=== PATIENT | male | born 1950 | race Caucasian/White ===

== ENCOUNTER 2025-09-01 11:08 | Outpatient (AMB) | payer MEDICARE, SELFPAY ==
--- OUTSIDE RECORDS SUMMARY | 2025-08-28 14:30 | XMS_ITS | Encounter Summary ---
Author Organization [facility] Address [address] [facility] [address] [place] [phone] Phone Care Team Providers Care Chief Operating Engineer Name Role Phone Marianne Mondragon Primary Care Provider Reason for Referral * MRI/CAT Scan - Authorized Specialty Diagnoses / Procedures Referred By Contac t Referred To Contact Radiology Diagnoses Dizziness and giddiness Cervical myofascial pain syndrome Brisk deep tendon reflexes Procedures MRI Cervical Spine CHG MRI, CERV SPINE CHG MRI, CERV SPINE CONTRAST CHG MRI, CERV SPINE COMBO Byron Diaz MD [address] [place] [address], [address] [place] [address] Phone: tel: fax: [email or web address] Referral ID Status Reason Start Date Expiration Date V isits Requested Visits Authorized [id number] Authorized 08/29/2025 11/26/2025 1 1 * MRI/CAT Scan - Authorized Specialty Diagnoses / Procedures Referred By Contac t Referred To Contact Radiology Diagnoses Dizziness and giddiness Tremors of nervous system Brisk deep tendon reflexes Procedures MRI Brain CHG MRI BRAIN Byron Diaz MD [address] [place] [address], [address] [place] [address] Phone: tel: fax: [email or web address] Referral ID Status Reason Start Date Expiration Date V isits Requested Visits Authorized [id number] Authorized 08/29/2025 11/26/2025 1 1 Reason for Visit * Reason Comments Follow Up Visit Encounter Details Date Type Department Care Team (Eligio st Contact Info) Description 08/28/2025 2:30 PM EDT Office Visit [facility] Neurology [address] [place] [address] Byron Diaz MD [address] [facility], 2nd [place] [address] [email or web address] Dizziness and giddiness (Primary Dx); Cervical myofascial pain syndrome; Tremors of nervous system; 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 No 06/06/2024 Education Answer Date Recorded Are you interested in more education? Not on clay e 10/09/2023 Are you concerned about learning? Not on file 10/09/2023 No 10/09/2023 No 10/09/2023 Food Answer Date Recorded Within the past 6 months we worried whether our food would run out before we got money to buy more. Never True 06/06/2024 Within the past 6 months the food we bought just didn't last and we didn't have enough money to get more. Never True Residential Stability Answer Date Recor ded What is your housing situation today? I have frantz cerda 06/06/2024 How many times have you moved in the past 12 mon ths? One time 06/06/2024 Paying for Meds Answer Date Recorded Do you have trouble paying for medicines? No 06/06/2024 Paying Utility Bills Answer Date Record ed Do you have trouble paying your heating or elect ricity bill? No 06/06/2024 Transportation Answer Date Recorded Has the lack of transportati on kept you from medical appointments or from getting medications? No 06/06/2024 Digital Access Answer Date Recorded No 06/06/2024 Yes 06/06/2024 Do you have reliable internet access at home? Ye s 06/06/2024 Do you have a device (e.g., phone, tablet, computer) with a working camera? Yes 06/06/2024 Intimate Partner Violence Answer Date R ecorded Are you denied basic needs s uch as food, clothing, or medical care? No 10/07/2024 In the past 12 months have y ou been in a relationship with a person who hurts, threatens, or tries to control you? No 10/07/2024 Are you denied basic needs s uch as food, clothing, or medical care? No 10/07/2024 In the past 12 months have y ou been in a relationship with a person who hurts, threatens, or tries to control you? No 10/07/2024 Sex and Gender Information Value Date Recorded Sex Assigned at Not on file Legal Sex Male 1:40 PM EST Gender Identity Not on file Sexual Orientation Not on file documented as of this encounter Last Filed Vital Signs Vital Sign Reading Time Taken Comments Blood Pressure 118/59 08/28/2025 2:32 PM EDT Pulse 64 08/28/2025 2:32 PM EDT Temperature - - Respiratory Rate - - Oxygen Saturation 97% 08/28/2025 2:32 PM EDT Inhaled Oxygen Concentration - - Weight - - Height - - Body Mass Index - - documented in this encounter Progress Notes * Byron Diaz MD - 08/28/2025 2:30 PM EDT Date of Visit: 08/28/2025 Reason for Visit (Chief Complaint): Memory changes; dizziness HPI: Mr. Fermin is a 74yo man with HTN, HLD, DM, CAD, ROMAN, depression/anxiety who returns for evaluation of short term memory loss that has been progressively worsening since the late . Prior evaluation at the [facility] in [id number] was notable for concern of pseudodementia although the examples provided today such as getting lost on a cruise ship, stopping driving due to concerns about poor focus on the road, etc. are more concerning for an underlying neurodegenerative process. -[facility] mentioned some slightly progressive hydrocephalus over the course of 5961-1636;I speculated about NPH given their report of imbalance and urinary incontinence, but updated Brain MRI 06/2024 here at [facility] showed no evidence to suggest NPH. NeuroPsych testing w Dr. Carlson 06/2024 showed mild Alzheimer's in addition to ongoing depression, which was not felt to be the cause of his cognitive issues. We started donepezil. At our 08/2024 appt, he was doing ok, memory was stable and tolerating donepezil well. Some days more lucid and other days more frustrating. Intention tremors persisted but weren't bothersome to him.He was in the ED 10/07/24 with dizziness and hyperkalemia, tx'd with IV fluids and Lokelma, and discharged home. Surveillance MANAGER OF QUALITY testing in 01/2025 was mostly stable mild AD with depression. He saw Sleep Med 01/2025 with plans for home sleep study. Dr. Rand also made some helpful recommendations regarding various sleep aids and how they may impact different stages of sleep (Ie. Mirtazapine may increase slow-wave sleep while donepezil may reduce slow-wave sleep and cause insomnia. Trazodone or doxepin might help to treat depression and also increase slow-wave sleep. Pregabalin and ramelteon might also help but would be less effective for depression). At our 02/2025 appt, things were status quo, some days more lucid than others, and overall he was more sedentary and depressed. We initiated memantine/namenda XR 7mg. After some initial GI side effects, he acclimated to it and we increased his dose to 14mg in 03/2025. Rebeka noted some fogginess/wooziness which I thought might be more related to BP meds. PCP did not find any particular cause at their 05/05/25 appt, plan to liaison with Cardiology re: HTN meds. PCP placed a referral to Geriatric Medicine as well, pending for 11/2025. At our 05/2025 televisit, we discussed his worsening dizziness and woozy foggy sensation forcing himto spend more time in bed. He reduced/stopped amlodipine/propranolol/ramipril without benefit. I did not think this was progression of his AD in light of stable memory and MANAGER OF QUALITY testing. I was skeptical that Namenda was causing his fogginess/dizziness, but we decided to taper him off it just in case. Tick panel was neg. Cardiac monitoring did not correlate with his dizziness. Vestibular PT was not helpful and concluded it wasn't vertigo. Ke and Rebeka return this afternoon. They cancelled their [place] cruise on account of the ongoingdizziness. I'm woozy most of the time and dizzy every now and then. He has trouble describing thedifference, like a blanket over his head. It is not room spinning. No LOC. No differences since he stopped memantine in 05/2025. He's spending more time in bed, unsteady just to get out of bed to get food. No changes since reducing 2 BP meds. He's having a lot of neck pain, saw. Dr. Sierra of Spine Medicine, who referred them to [facility] for injections, pending for later this week. RAS consult pending for next week. Geriatrics pending for 09/2025. Memory seems stable, no better orworse on/off the memantine. Some increasing tremors of late. He's walking more slowly and hunched due to his neck pain. Initial HPI 06/16/24: Mr. Fermin is a 73yo man with HTN, HLD, DM, CAD, ROMAN, depression/anxiety who is referred for evaluation of memory changes. He has been followed by various neurologists in the [facility] system for forgetfulness of several years' duration. At his most recent visit in 04/2022, they reviewed several pages of family notes detailing minor memory lapses associated with agitation or depression. They mention the prior dementia labs were unremarkable. They mention an occasional L>R positional hand tremor that might affect brushing teeth or eating soup, but otherwise was not bothersome to the patient. Noparkinsonian signs like rigidity or gait instability. They concluded that his memory changes were related to pseudodementia from depression/stress versus mild MCI; he scored 35-37/38 on STMS testing. They felt that his cognitive abilities seemed improved or stable over time, and they did not thinkthat he needed any dementia medications. His tremor was felt to be most consistent with enhanced physiologic versus essential tremor, and the the patient was not interested in treatment at that time and effort to avoid further polypharmacy. I was in touch with the patient's local PCP earlier this summer who mention some ongoing concerns about progressive memory loss. I recommended an updated brain MRI and neuropsych testing, both of which have been ordered and are pending as of our 06/16/2024 ruel springer. He presents today accompanied by his Rebeka. I have short term memory problems and I forget everything. 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 It's been going on for years, to the late . When I ask for examples, he mentions things like forgetting when his tells him to turn off the coffee pot before going bed. He finds this depressing bc he felt that his memory was always great. He is somewhat vague. She has several pages of notes that she has logged, highlights include: he didn't recall their new car was a hybrid or had 2 vs 3 rows of seats; forgot whether or not he had lunch; forgot that they just ate an energy bar an hour ago; forgot that he had a telemed appt despite their discussing it several times; concentration issues when more than 1 thing is going on; he didn't realize it was a weekend/summer and why family wasn't in school; forgot about blueberry picking outing with friends that they had recently discussed; he left a urine specimen on their counter when she went out (he was supposed to submit it the next morning). They went on a cruise recently, and he was pacing the halls unable to find their cabin when she left him alone for a few minutes. He tells her things like I feel disconnected. They were unable to get neuropsych testing due to logistical issues with staff turnover at . Alvino cut down and ultimately stopped driving in 2022 due to poor focus on the road and neck/pain mobility. Alvino listens to all of these details rather passively and occasionally agrees/nods with her history. When I ask about mental health, he says I feel down a lot. He denies any head injuries as an adult. No hx of meningitis/encephalitis. Sleep is fine and he was retested which showed no further evidence of ROMAN since losing ~45 lbs via diet/exercise. Balance is so-so, he trips and falls sometimes, catches his toes on a step and goes down. He might shuffle at times. Denies any dizziness or weakness or numbness. He has prism lenses to correct his lifelong diplopia from amblyopia. Some mild tinnitus but denies hearing loss. He sees a Urologist for kidney stones, but he has had some recent urgeincontinence where he doesn't make it to the bathroom in time (they've been increasing their water intake due to hot summer and hx of kidney stones - I'm constantly peeing ). He has some essential tremors that are getting a bit worse, and he finds it frustrating when thingsfall off his spoon or fork. He uses propranolol 20mg BID. They use [email or web address] med management system to track/manage his meds. --------- NeuroPsych testing - 01/[address] Carlson - Results of the 6-month reevaluation are generally unchanged, with some variability in test course, with both gains and losses. I continue to classify this as dementia of mild severity with some background depression. On this evaluation there is no change in his intelligence, with his overall score still average butbelow his background expectation. He has good attention pain... Language skills remain intact. He has some problems in executive functions, with some decline in his verbal and nonverbal abstract thinking. His memory remains as the greatest area of concern. He did not perform his well on the delayedlist recall task but remembered more than 2 stories after delay. His immediate visual recall is slightly better, but he continues to be unable to remember any of the design information after a delay.He is endorsing fewer depressive symptoms but remains underactive and less able to enjoy activities Dr. Hernandez recommended continuing donepezil and adding memantine ER with up titration. Continue sertraline 150 mg at bedtime especially since it is now augmented by mirtazapine. Follow-up regarding sleep medicine consultation. Encouraged regular physical activity. Repeat neuropsych testing in 1 years time. NeuroPsych testing - 06/[address] Carlson - Patient is suffering from a dementia of mild severity with depression. The pattern of test scores is consistent with Alzheimer's disease, but his medical history suggest a vascular component is present.??? His depression remains despite current treatment but is unlikely to be the cause of his cognitive problems. He demonstrates severe impairment in his delayed recall that at that his learning curve was limitedand delayed recall fell well below expectations. His immediate memory for stories was average quantitatively but declined over 20 minutes to a single piece of information from one of the 2 stories. His visual memory was greatly impaired. In addition to the memory problems, he was confused in the computerized continuous performance test, with reliable responding to only the auditory targets and scoring at a severely impaired level even there... His depression appears to be of longstanding, and Dr. Hernandez did not know enough about his history of response to his current medications or any predecessors to offer much advice in that area. Dr. Hernandez recommended blood work which we have already pursued. Although prior sleep study was negativefor sleep apnea, Dr. Hernandez expressed concern for the absence of stage III sleep. He recommended sleep medicine consultation. He recommended taking sertraline at bedtime to avoid excessive sedation duringthe day. Dr. Hernandez agreed with initiation of a memory medication like donepezil, dosed in the morning so as to avoid excessive dreaming. Encourage regular exercise. Repeat MANAGER OF QUALITY testing in 6 months time. Labs - B12 505, MMA and homocysteine wnl, TSH 2.28, RPR neg, A1C 6.7. LDL 46. Vit D 43 wnl. Brain MRI - 07/04/24 - images reviewed - Minimal WM disease and no significant ventricular enlargement. No evidence of intracranial mass, hemorrhage, acute infarction, or hydrocephalus. Head CT - 08/24/23 - [facility] report - No CT evidence of an acute intracranial abnormality. Mild parenchymal atrophy with nonspecific cerebral white matter changes that may be seen with chronic small vessel ischemia in a patient this age. Mild prominence of the bilateral lateral ventricles, slightly increased compared to 09/13/2022; this is favored to be commensurate to the degree of volume loss.However, given the provided clinical indication, early/developing normal pressure hydrocephalus mayappear similarly. Brain MRI - 09/13/2020 - [facility] report - 1. Mild atrophy with slight parietal prominence, otherwise normal MRI brain with without contrast. 2. Given these findings and patient's reported symptoms, consideration of further neuropsychological testing may be appropriate. PMHx: Past Medical History: Diagnosis Date Aortic stenosis 04/26/2024 Mild Coronary artery disease Dementia Hyperlipidemia Hypertensive disorder Mitral regurgitation 04/26/2024 Mild ROMAN (obstructive sleep apnea) 02/19/2022 Resolved. PSG, with AHI 0.3. HST, 03/07/2025 also normal, AHI 2.1. (Moderate ROMAN originally diagnosed in 2008, but was never treated with CPAP, only an EPAP nasal device.) Overweight (BMI 25.0-29.9) Tremor Meds: Current Outpatient Medications Medication Sig Dispense Refill Last Dispense acetaminophen (TYLENOL EXTRA STRENGTH) 500 MG tablet Take 1,500 mg by mouth daily. 1000mg in the morning, and 500mg in the evening. Unknown (patient-reported) aspirin 81 mg chewable tablet Take 81 mg by mouth daily. Unknown (patient-reported) atorvastatin (LIPITOR) 80 MG tablet Take 1 tablet (80 mg total) by mouth daily. 90 tablet 3 Unknown(outside pharmacy) clotrimazole (LOTRIMIN) 1 % cream Apply topically 2 (two) times a day. 30 g 0 Unknown (outside pharmacy) donepeziL (ARICEPT) 10 MG tablet TAKE 1 TABLET (10 MG TOTAL) BY MOUTH DAILY WITH BREAKFAST. 90 tablet 3 Unknown (outside pharmacy) FIBER, PSYLLIUM HUSK, ORAL daily. Unknown (patient-reported) JANUVIA 100 mg tablet Take 1 tablet (100 mg total) by mouth daily. 90 tablet 3 Unknown (outside pharmacy) Medication-Free Text Vitamin D3 100IU 1 tab daily Unknown (patient-reported) metFORMIN (GLUCOPHAGE) 1000 MG tablet TAKE 1 TABLET BY MOUTH TWICE A DAY 180 tablet 3 Unknown (outside pharmacy) mirtazapine (REMERON) 15 MG tablet take 1 tablet by mouth everyday at bedtime Unknown (patient-reported) multivit-min/folic/vit K/lycop (ONE-A-DAY MEN'S MULTIVITAMIN ORAL) daily. Unknown (patient-reported) omega-3 fatty acids-fish oil 340-1,000 mg Cap Take by mouth daily. Unknown (patient-reported) propranoloL (INDERAL) 20 MG immediate release tablet TAKE 1 TABLET BY MOUTH TWICE A DAY 180 tablet 3 Unknown (outside pharmacy) ramipriL (ALTACE) 5 MG capsule Take 1 capsule (5 mg total) by mouth 2 (two) times a day. 30 [id number] Unknown (outside pharmacy) sertraline (ZOLOFT) 100 MG tablet Take 1.5 tablets (150 mg total) by mouth daily. 135 tablet 3 Unknown (outside pharmacy) tamsulosin (FLOMAX) 0.4 mg Cap 0.4 mg daily. Unknown (patient-reported) Current Facility-Administered Medications Medication Dose Route Frequency Provider Last Rate Last Admin lidocaine (XYLOCAINE) 1% injection 2 mL 2 mL See Administration Instructions See Admin InstructionsEva Mei MD Allergies: No Known Allergies FamHx: Mother w memory issues in her 90s. 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 The patient does not smoke, abuse ETOH or use recreational drugs. ROS: Pertinent positive ROS are listed in the HPI. All others are negative. Physical Exam: Vitals: Vitals: 08/28/25 1432 BP: 118/59 Pulse: 64 SpO2: 97% Gen: AAOx3, calm, NAD but mood appears dysthymic Neuro: MS: Speech is clear/fluent, no dysarthria. Vague and defers often to his . Knows month and year. Doesn't know exact floor location. Doesn't want to discuss President's name. MMSE - 06/16/24 - (incorrect date, day of the week; location; took paper w wrong hand; 1/3 recall, 3/3 w cues; preserved pentagon drawing). CN: no facial droop nor asymmetry, hearing intact to conversation Motor: Subtle resting tremors. +Enhanced physiological tremor w arms in various positions. No bradykinesia. No cogwheeling. Able to arise from a chair w/o difficulty. Sens: Intact to LT, no extinction to DSS Reflexes: 2+ b/l Bi/BR, 1-2+ patellars, mute achilles, down going plantars, faint crabtree's in LUE Coord: FTN w end point tremor, no dysmetria Gait: Nml base, stooped posture slightly shuffling stride, minimal arm swing Assessment and Plan: Mr. Fermin is a 74yo man with HTN, HLD, DM, CAD, ROMAN, depression/anxiety who returns for evaluation of short term memory loss that has been progressively worsening since the late . Prior evaluation at the [facility] in [id number] was notable for concern of pseudodementia although the examples provided today such as getting lost on a cruise ship, stopping driving due to concerns about poor focus on the road, etc. are more concerning for an underlying neurodegenerative process. [facility] imaging mentioned some slightly progressive hydrocephalus over the course of 8776-1120; I speculated about NPH given their report of imbalance and urinary incontinence, but updated Brain MRI 06/2024 here at [facility] showed no evidence to suggest NPH. NeuroPsych testing w Dr. Carlson showed mild Alzheimer's in addition to ongoing depression, which was not felt to be the cause of his cognitive issues. We started donepezil which he has been tolerating well. Surveillance neuropsych testing in 01/2025 showed stable mild ED with depression. He saw sleep medicine. We added memantine/namenda in 02/2025 which they think might be contributing to a sensation of fogginess/wooziness. No ataxia or focal deficits when he saw his PCP 05/05/25. He reports ongoing dizziness/wooziness since ~ April 2025. It persists despite stopping memantine and down-titrating his cardiac meds. Cardiac work-up was unrevealing. Vestibular PT did not think it was an inner ear issue. He has ongoing neck pain and has [facility] eval pending. Also with Neuro-ENT and Geriatric Medicine pending. -Check Brain MRI and C-Spine MRI to r/o structural causes of dizziness (I doubt posterior circulation stroke; r/o cervical myelopathy given brisk reflexes and neck pain) -He has some possible emerging parkinsonian signs - resting tremor, stooped posture w shuffling gait - consider NISHANT scan vs. Empiric trial of sinemet in the future if Brain/C-Spine MRI unrevealing and if work-up with Pain Clinic, ENT, and Geriatrics are unrevealing. -We tapered off memantine in summer 2024 without any change in cognition nor dizziness. -Agree with Pain Management, [facility] Neuro-ENT, and Geriatric Medicine evaluations -Sleep Med consult - ? Loss of stage 3 sleep seen on prior studies in [place]. ? Role for adjusting his antidepressants or other sleep aids. -Continue donepezil 10mg daily. -I referred them to the book by Dr. Mckeon and Brendon Carlson entitled Dementia Prevention. I encouraged them to stay physically active and socially/cognitively stimulated. -f/u 3 months I spent 40 minutes (both FTF and nonFTF time) preparing to see the patient, reviewing prior notes and relevant data, performing a medically necessary evaluation, counseling the patient, and finalizing the visit. documented in this encounter Plan of Treatment Upcoming Encounters Date Type Department Care Team (Late st Contact Info) Description 08/28/2025 Procedure Pass [address] [address] 08/28/2025 Procedure Pass [address] [address] 09/05/2025 9:15 AM EDT Office Visit [facility] Vestibular Lab [place] [address] [place] [address] Debbie Waller MD, PhD [address] [place] [phone] [email or web address] 09/20/2025 3:30 PM EST Office Visit [facility] Geriatrics [address] [place] [id number] Mateo Lozano DO [address] [place] [phone] [email or web address] 09/26/2025 1:40 PM EST Office Visit [facility] [address] [place] [address] Ivory Camejo PA-C [address] [place] [address] [facility] [place] [address] 10/01/2025 7:05 AM EST Appointment [address] [address] Byron Diaz MD [address] [place] [address], 2[address] [place] [address] 10/04/2025 10:35 AM EST Appointment [facility], [facility] [address] [place] [address] Byron Diaz MD [address] [place] [address], [address]nd [place] [address] 10/16/2025 9:30 AM EST Office Visit [address] [place] [address] Marianne Mondragon [address] [place] [address], [address] [place] [address] [email or web address] 10/24/2025 10:30 AM EST Office Visit [facility] [address] [place] [address] [address]rd Floor, [address] [place] [address] Debra Hernandez DNP [address] [facility], [address] [place] [address] 11/28/2025 10:00 AM EST Office Visit [facility] [address] [place] [address] Sidney Rodriguez PA-C [address] [place] [address], 3[address] [place] [address] 11/22/2026 10:00 AM EST Office Visit [address] [place] [address] Marianne Mondragon [address] [place] [address], [address] [place] [address] [email or web address] Scheduled Orders Name Type Priority Associated Diagnoses Orde r Schedule MRI Brain Imaging Routine Dizziness and giddiness Tremors of nervous system Brisk deep tendon reflexes Expected: 08/28/2025, Expires: 11/28/2026 MRI Cervical Spine Imaging Routine Dizziness and giddiness Cervical myofascial pain syndrome Brisk deep tendon reflexes Expected: 08/28/2025, Expires: 02/26/2026 documented as of this encounter Visit Diagnoses Diagnosis Dizziness and giddiness- Primary Cervical myofascial pain syndrome Tremors of nervous system 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 Brisk deep tendon reflexes documented in this encounter Additional Health Concerns Assessment Noted Time PHQ-9 Depression Total Score: 9 08/08/20 9:24 AM EDT PHQ-2 Depression Total Score: 5 08/08/20 9:24 AM EDT documented as of this encounter Care Teams Chief Operating Engineer Relationship Specialty Start Date End Date Marianne Mondragon [address] [place] [address], [address] [place] [address] [email or web address] PCP - General Family Medicine 03/30/24 documented as of this encounter Additional Source Comments The information contained in this document represents components of the legal health record. It is not the complete legal health record.[facility]
--- NOTE | 2025-09-01 11:18 | MHC.OFFVIS ---
Vital Signs 09/01/25 11:33 Height 5 ft 10 in Weight 188 lb BMI 27.0 BP 114/52 L Blood Pressure Location Lt brachial Position Sitting Respiration 16 Pulse 62 Pulse Source Pulse Oximeter Pulse Oximetry (%) 96 Oxygen Delivery Method Room Air Intake Visit Reasons: CERVICAL FACET JOINT SYNDROME Allocations Clerk Required: No Accompanied by: Spouse Allergies No Known Allergies Allergy (Verified 09/01/25 11:35) Medication List - Last Reconciled 09/01/25 by Luz Wallis LPN acetaminophen 500 mg PO Q6H aspirin 81 mg PO DAILY atorvastatin (Lipitor) 80 mg PO BEDTIME cholecalciferol (vitamin D3) 25 mcg PO DAILY donepezil 10 mg PO DAILY metformin 1,000 mg PO BID multivitamin 1 tab PO DAILY omega 9-rhd-ukj-fish oil 1,000 (120-180) mg (Fish Oil) 1 cap PO DAILY propranolol 20 mg PO BID psyllium husk (Daily Fiber) 0.4 grams PO BEDTIME ramipril 5 mg PO BID sertraline 150 mg PO DAILY sitagliptin phosphate (Januvia) 100 mg PO DAILY tamsulosin 0.4 mg PO BEDTIME HPI HPI CERVICAL FACET JOINT SYNDROME: Details: History of Present Illness The patient is a 74-year-old male presenting with neck and lower back pain. The neck pain is described as aching and stabbing with a touching sensation, rated at 8/10 in severity. The lower back pain is rated at 4/10 in severity. The pain has been persistent for 15 years, significantly impacting daily activities and normal functioning. Movement exacerbates the pain, which remains constant at an intensity of 6-8/10 throughout the day. The patient has a history of cardiac stent placement in 2019 and has undergone physical therapy for neck and vestibular symptoms with minimal relief. He has also used a traction machine and undergone counseling for chronic pain and depression. The patient reports dizziness and loss of balance since April, which may be related to spinal stenosis. An MRI is scheduled for October 01 to evaluate the neck and potential spinal stenosis. Pain Description - Onset: 15 years ago - Quality: Aching, stabbing, touching sensation in the neck - Severity: 8/10 in the neck, 4/10 in the lower back - Exacerbating factors: Movement increases pain - Impact: Interferes with daily activities and normal functioning Physical Exam - Cervical Spine: Severely limited extension, flexion eases pain Results - MRI scheduled for October 01 to evaluate neck and potential spinal stenosis Pain Management - Affect: Pain significantly impacts daily activities and normal functioning - Analgesia: Pain rated at 8/10 in the neck and 4/10 in the lower back - Activities of Daily Living: Pain interferes with daily activities and normal functioning [facility] Medical History (Updated 08/09/25 @ 08:53 by Luz Wallis LPN) Diabetes Hypertension Memory loss Hyperlipidemia Cervical facet joint syndrome Physical Exam Vital Signs: Last Vital Signs Pulse 62 09/01/25 11:33 Resp 16 09/01/25 11:33 BP 114/52 L 09/01/25 11:33 Pulse Ox 96 09/01/25 11:33 Oxygen Delivery Method Room Air 09/01/25 11:33 BMI result Body Mass Index 27.0 Assessment & Plan Assessment & Plan (1) Cervical facet joint syndrome: Code(s): M47.812 - Spondylosis without myelopathy or radiculopathy, cervical region Category: Medical Plan Plan Patient was informed and verbally consented to the use of an ambient scribe for clinic note documentation during this visit. 1. Cervical Spondylosis - Plan for diagnostic C3, C4, C5 MBBs in the neck, starting with the left side, followed by the right side two weeks later. - Consideration of radiofrequency ablation or nerve stimulation if diagnostic blocks provide relief. 2. Lower Back Pain - No specific plan discussed for lower back pain during this visit. Discussion Notes I discussed with the patient the plan to perform diagnostic blocks in the neck, starting with the left side and then the right side two weeks later. We also talked about the possibility of radiofrequency ablation or nerve stimulation if the diagnostic blocks provide relief. I advised waiting for the MRI results before proceeding with any device implantation due to potential interference with imaging. Patient Instructions - Schedule and attend the MRI on October 01. - Follow up for diagnostic blocks in the neck, starting with the left side. - Consider radiofrequency ablation or nerve stimulation if diagnostic blocks provide relief. Coding Level of Care Code New Pt Level 4 (89047) Diagnoses Cervical facet joint syndrome M47.812
[2025-09-01 11:33] VITALS: BP 114/52; PULSE 62; RESP 16; O2SAT 96; BMI 27.0
--- OUTSIDE RECORDS SUMMARY | 2025-09-01 13:25 | XMS_ITS | Encounter Summary ---
Author Organization [facility] Address [address] [place] [address] Phone Care Team Providers Care Flight Readiness Technician Name Role Phone Marianne Mondragon Primary Care Provider Encounter Details Date Type Department Care Team (Late st Contact Info) Description 07/07/2025 Telephone [facility] [address] [place] [address] Kalia Hdz, PT [address] [place] [address] [email or web address] Social History Tobacco Use Types Packs/Day Years [...] on file documented as of this encounter Plan of Treatment Upcoming Encounters Date Type Department Care Team (Late st Contact Info) Description 08/28/2025 Procedure Pass [address] [address] 08/28/2025 Procedure Pass [address] [address] 09/05/2025 9:15 AM EDT Office Visit [facility] [address] [address] Debbie Waller MD, PhD [address] [place] [address] [email or web address] 09/20/2025 3:30 PM EST Office Visit [facility] [address] [place] [address] [place] [address] Mateo Lozano, [address] [place] [address] 09/26/2025 1:40 PM EST Office Visit [facility] [address] [place] [address] Ivory Camejo PA-C [address] [place] [address] Orthopedics & Sports [facility], [place] [address] 10/01/2025 7:05 AM EST Appointment [address] [address] Byron Diaz MD [address] [place] [address], [address] [place] [id number] 10/04/2025 10:35 AM EST Appointment [address] [address] Byron Diaz MD [address] [place] [address], [address] [place] [id number] 10/16/2025 9:30 AM EST Office Visit [facility] [address] [place] [address] Marianne Mondragon [address] [place] [address], [address] [place] [address] [email or web address] 10/24/2025 10:30 AM EST Office Visit [facility] [address] Floor, [address] [place] [address] Debra Hernandez DNP [address] [facility], [address] [place] [address] 11/28/2025 10:00 AM EST Office Visit [facility] [address] [place] [address] Sidney Rodriguez PA-C [address] [facility], 3rd [place] [address] 11/22/2026 10:00 AM EST Office Visit [facility] [address] [place] [address] Marianne Mondragon [address] [facility], [address] [place] [address] [email or web address] documented as of this encounter Visit Diagnoses Not on filedocumented in this encounter Additional Health Concerns Assessment Noted Time PHQ-2 Depression Total Score: 2 08/16/20 24 4:09 PM EDT documented as of this encounter Care Teams Flight Readiness Technician Relationship Specialty Start Date End Date Marianne Mondragon [address] [place] [address], [address] [place] [address] PCP - General Family Medicine 03/30/24 documented as of this encounter Additional Source Comments The information contained in this document represents components of the legal health record. It is not the complete legal health record.[facility]
--- OUTSIDE RECORDS SUMMARY | 2025-09-01 13:26 | XMS_ITS | Clinical Summary ---
Author Organization [facility] Address [address] [place] [id number] Phone Care Team Providers Care Sports Agent Name Role Phone Marianne Mondragon Primary Care Provider Allergies No known active allergies Medications aspirin 81 mg chewable tablet Take 81 mg by mouth daily. Active mirtazapine (REMERON) 15 MG tablet take 1 tablet by mouth everyday at bedtime Active multivit-min/foli c/vit K/lycop (ONE-A-DAY MEN'S MULTIVITAMIN ORAL) daily. Active acetaminophen (TYLENOL EXTRA STRENGTH) 500 MG tablet Take 1,500 mg by mouth daily. 1000mg in the morning, and 500mg in the evening. Active FIBER, PSYLLIUM HUSK, ORAL daily. 4 Active omega-3 fatty acids-fish oil 340-1,000 mg Cap Take by mouth daily. Active Medication-Free Text Vitamin D3 100IU 1 tab daily Active atorvastatin (LIPITOR) 80 MG tablet Take 1 tablet (80 mg total) by mouth daily. 90 tablet 3 4 11/03/20 25 Active JANUVIA 100 mg tabletIndications :Diabetes mellitus type 2 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 Take 1 tablet (100 mg total) by mouth daily. 90 tablet 3 5 01/13/20 26 Active metFORMIN (GLUCOPHAGE) 1000 MG tablet TAKE 1 TABLET BY MOUTH TWICE A DAY 180 tablet 3 5 Active propranoloL (INDERAL) 20 MG immediate release tablet TAKE 1 TABLET BY MOUTH TWICE A DAY 180 tablet 3 5 Active sertraline (ZOLOFT) 100 MG tablet Take 1.5 tablets (150 mg total) by mouth daily. 135 tablet 3 5 Active tamsulosin (FLOMAX) 0.4 mg Cap 0.4 mg daily. 5 Active ramipriL (ALTACE) 5 MG capsuleIndication s:Benign essential hypertension Take 1 capsule (5 mg total) by mouth 2 (two) times a day. 30 capsule 11 5 Active clotrimazole (LOTRIMIN) 1 % creamIndications: Seborrheic dermatitis, unspecified Apply topically 2 (two) times a day. 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 90 tablet 3 5 Active Hospital, Clinic, or Other Facility Administered Medication Ordered Dose Route Frequency Start Date End Date Status lidocaine (XYLOCAINE) 1% injection 2 mL 2 mL See Adm Inst See admin instructions 04/21/2024 Active Active Problems Problem Noted Date Diagnosed Date Rash 07/24/2025 Assessment & Plan (07/24/2025 6:13 PM EDT): Acute rash improving, allergic vs inset bites? - Apply thick emollient cream/steroid cream for itch. - Consider Lyme disease testing if rash persists or worsens. Near syncope 05/30/2025 Assessment & Plan (05/30/2025 12:11 PM EDT): See lightheadedness A&P for management. Lightheadedness 05/05/2025 Assessment & Plan (07/24/2025 6:11 PM EDT): Chronic dizziness with negative vertigo evaluations. Differential includes neurological, ENT, or sleep-related disorders. Consider [facility] evaluation due to symptom complexity. - Initiate physical therapy for balance and neck. - Consult Dr. Diaz for neurological evaluation. - Contact Dr. Rand for sleep disorder evaluation. - Research [facility] for comprehensive evaluation. - Consider Lyme disease testing. Assessment & Plan (06/08/2025 6:38 PM EDT): Persistent severe orthostatic hypotension with dizziness, nausea, and weakness causing functional impairment. Underlying cause unclear. - Schedule earlier appointment with technology sales specialist Dr. Ayala if possible. - Proceed with carotid ultrasound. - Discuss potential loop recorder placement with Dr. Ayala. - Could consider decreasing propanolol though I would want to do this with cariology's blessing. - Will be canceling cruise, paperwork completed. Assessment & Plan (05/30/2025 12:09 PM EDT): Pt reports lightheadedness and not feeling well for about 6-8 weeks. Lab work has been unremarkable and MCT showed no conduction issues. Will get a thyroid panel, US of the carotids, reduce his ramipril to 5mg BID, and schedule an ILR for further monitoring. Pt to follow-up on 07/17/25 as scheduled. We discussed the risks of ILR implant including bleeding and infection. Plan: TSH, T4, and T3 US carotid bilateral Decrease ramipril Schedule ILR Assessment & Plan (05/22/2025 3:00 PM EDT): Intermittent dizziness and fuzziness. Blood pressure within normal range now. Differential includes amlodipine side effects, cardiac arrhythmias, or missed UTI. EKG looks unchanged from previous. - Perform urinalysis to rule out UTI. - Discontinue amlodipine to assess impact on symptoms. - Order Holter monitor to evaluate for cardiac arrhythmias. - Perform EKG to check for any cardiac changes. - Monitor blood pressure daily. - Schedule follow-up appointment in a couple of weeks. Assessment & Plan (05/05/2025 5:14 PM EDT): Dizziness with fogginess for over a month. Not linked to exercise, blood pressure, blood sugar, or hydration. Possible causes: over-treatment of hypertension, anemia, deconditioning, sinus congestion/allergies. Neurologist ruled out memantine as cause. Echocardiogram pending through cardiology. - Order CBC and comprehensive metabolic panel. - Recommend Flonase for sinus congestion. - Contact technology sales specialist for blood pressure medication adjustment. - Perform orthostatic blood pressure measurements (patient left before we performed) Iron deficiency anemia 03/20/2025 Assessment & Plan (03/20/2025 5:21 PM EDT): Did not tolerate the oral iron despite using the extended release iron. I did encourage him to give it a second try in case it was not the iron that caused his GI distress. He will do this. Otherwise, if he cannot tolerate a supplement, his ferritin was good and iron was only slightly low. Encouraged him to increase dietary iron. Right wrist pain 11/21/2024 Assessment & Plan (11/21/2024 9:40 AM EST): Right wrist pain and swelling, seen by orthopedics who thought could be inflammatory and labs were ordered after xray negative. Labs unremarkable aside from elevated ESR. I discussed with patient that this is very non specific and can be elevated due to a variety of causes including infection, anemia, CKD, inflammation etc. Given his other negative rheum labs I would be surprised if this indeed was a rheumatological etiology. Will have patient follow up with hand specialist next week. If she is still concerned for non orthopedic etiologies, will telida back and discuss next steps. Hyperkalemia 10/18/2024 Assessment & Plan (10/18/2024 5:59 PM EST): Resolved prior to discharge, will repeat labs at this time to ensure that this is not recurring. Anemia 10/18/2024 Assessment & Plan (10/18/2024 6:00 PM EST): Very mild anemia. Will repeat to make sure that this is normalized. Elevated lipase 10/18/2024 Assessment & Plan (10/18/2024 6:00 PM EST): Mildly elevated lipase, I wonder if this was 2/2 the Ozempic. Will repeat to ensure that this has normalized. Encounter for annual wellnes s visit (AWV) in Medicare patient 08/18/2024 Assessment & Plan (08/14/2025 8:53 AM EDT): This is a 74 y.o. male who presents for a complete physical exam. Past medical history, surgical history, social history, family history and allergies reviewed and document in chart. -Blood pressure taken and reviewed. -General health screening appropriate for age reviewed -General nutrition recommendations reviewed: 5 servings of fruits and vegetables, adequate protein. -Exercise recommendations reviewed: 150 minutes of cardiovascular exercise weekly. At least two strength training sessions weekly for muscle mass and bone health. -Breast cancer screening discussed: Last mammogram: Result: BIRADS Any abnormal hx: no -Colon cancer screening discussed: Last colonoscopy: 2020. Result: normal. Any abnormal hx: polyps. One last screening in 2025 if health is still stable. -Smoking cessation: NA -Lung Cancer Screening: NA -Abdominal Aortic Aneurysm: Has never had though incidentally captured on previous imaging in 2021. Negative. -Osteoporosis screening discussed: NA- has lost some height, might consider. -Prostate cancer screening: Last PSA: 2023. Result: normal Any abnormal hx: no. Father had prostate cancer. Wants to continue. -Prediabetes and Type 2 Diabetes Screening: Has diabetes. A1C normal on last check. -Hyperlipidemia screening: Ordered -STI screening: Declined -One lifetime HIV and Hep C test: Ordered. -IPV screen: negative -PHQ2: 9, GAD7: 1 -ADLS: No limitations -Immunizations reviewed: Due for flu and maybe TDAP. Will check. Has flu scheduled. -Labs as ordered -Regular vision and dental exams recommended: UTD -Living will/MOLST/HCP: Paperwork provided. HCP is Rebeka. -Annual physical exam recommended Assessment & Plan (08/18/2024 5:08 PM EDT): This is a 73 y.o. male who presents for a complete physical exam. Past medical history, surgical history, social history, family history and allergies reviewed and document in chart. -Blood pressure taken, no signs of hypertension. -General health screening appropriate for age reviewed -General nutrition recommendations reviewed: 5 servings of fruits and vegetables, adequate protein. -Exercise recommendations reviewed: 150 minutes of cardiovascular exercise weekly. At least two strength training sessions weekly for muscle mass and bone health. -Colon cancer screening discussed: Last colonoscopy: 2020. Result: normal. Any abnormal hx: polyps. One last screening in 2025 if health is still stable. -Smoking cessation: NA -Lung Cancer Screening: NA -Abdominal Aortic Aneurysm: Has never had though incidentally captured on previous imaging. Ordered. -Osteoporosis screening discussed: NA -Prostate cancer screening: Last PSA: 2021. Result: normal Any abnormal hx: no. Father had prostate cancer. Wants to continue. -Prediabetes and Type 2 Diabetes Screening: Has diabetes -Hyperlipidemia screening: Stable -STI screening: Declined -One lifetime HIV and Hep C test: Ordered. -IPV screen: negative -PHQ2: 2 -Immunizations reviewed: Due for PCV20, flu- given, covid in September, maybe tetanus, will find out. -Labs as ordered -Regular vision and dental exams recommended: UTD -Dermatology/sunscreen: Wears sun protection sometimes. Does not see dermatology. -Living will/MOLST/HCP: Paperwork provided. -Annual physical exam recommended Anxiety 06/09/2024 Erectile dysfunction 06/09/2024 Assessment & Plan (06/09/2024 10:51 AM EDT): Has tried medication in the past without success. Insomnia 06/09/2024 Assessment & Plan (06/09/2024 10:54 AM EDT): Well controlled with Remeron 15mg daily. Sleeps well. Seborrheic dermatitis 06/09/2024 Assessment & Plan (06/10/2024 2:35 PM EDT): Uses a cream but unsure of name. Will let me know in case he needs refills. Moderate episode of recurrent major depressive d isorder 06/09/2024 Assessment & Plan (08/14/2025 9:07 AM EDT): Major depressive disorder with ongoing symptoms despite sertraline treatment. - Re-evaluate depression management in October. - Consider psychiatry referral if needed. - Discuss potential medication change with geriatrics. Assessment & Plan (06/09/2024 7:03 PM EDT): Longstanding depression, on Zoloft 100mg daily. Does not feel like the medication is controlling his depression. Multiple situational issues that are also contributing. Will discuss at next visit possible alternative medications. Osteoarthritis 06/09/2024 Assessment & Plan (06/09/2024 10:58 AM EDT): Takes 1000mg of Tylenol QAM, 500mg nightly. Trying to cut back. Benign prostate hyperplasia 06/09/2024 Assessment & Plan (06/10/2024 2:27 PM EDT): Sees urology. Currently unmedicated. Balance disorder 06/09/2024 Assessment & Plan (06/10/2024 2:22 PM EDT): Patient reports worsening balance in recent years. Reports he has been tripping on things frequently, even small things. Feels like his hips get tight as well which contributes to the issue. Is more sedentary due to fear of falling. I am wondering if there is link with his cognitive impairment and tremor but due to time restraints we did not get to a physical exam. He is seeing neurology in the fall and I will refer to PT to work on balance and mobility. Other hyperlipidemia 02/01/2024 Assessment & Plan (05/30/2025 12:07 PM EDT): Pt currently on atorvastatin and tolerating well. No changes in management. Plan: Continue atorvastatin Assessment & Plan (01/02/2025 11:35 AM EST): Continue atorvastatin 80 mg daily. Most recent LDL 46. Will continue with annual liver and lipid panels. Assessment & Plan (06/10/2024 2:35 PM EDT): Stable on Atorvastatin 80mg daily. Pending lipid panel through cardiology. Benign essential hypertension 02/01/2024 Assessment & Plan (05/30/2025 12:05 PM EDT): Blood pressure low today. Patient is reporting lightheadedness more often with changes of position. I will reduce his ramipril to 5 mg twice a day. Patient is also on propranolol for essential tremor. Continue discontinuing ramipril altogether will get orthostatic blood pressures today. Plan: Decrease ramipril to 5mg BID Continue propranolol Follow-up on 07/17/25 as scheduled Assessment & Plan (01/02/2025 11:29 AM EST): Blood pressure well-controlled in the office 120/76. Patient educated on HTN pathophysiology, htn medication, importance of low salt DASH heart healthy diet, exercise and home B/P monitoring. Advised if home blood pressure readings are higher than 130/80 to call the office. Patient will continue on amlodipine 10 mg daily. Assessment & Plan (06/10/2024 2:26 PM EDT): Stable on ramipril 10 mg daily, amlodipine 5 mg daily. Has propranolol 20 mg twice daily for his tremor which I am sure has some mild blood pressure as well. Nephrolithiasis 11/19/2022 Assessment & Plan (06/09/2024 10:55 AM EDT): Seen by urology in [place]. Had a recent US that was clean. Essential tremor 06/23/2022 Assessment & Plan (06/09/2024 10:52 AM EDT): Takes propanolol 20mg BID. Cervical myofascial pain syndrome 03/08/2021 Assessment & Plan (06/10/2024 2:28 PM EDT): Will be starting PT in July. MCI (mild cognitive impairment) 01/07/2021 Assessment & Plan (06/10/2024 2:33 PM EDT): Patient reporting that he feels like has had had progressive cognitive impairment in the last few years. Has been gradual and worsening. Mostly lapses in short term memories. Won't remember if he has lunch, didn't remember where he was going this morning, couldn't remember how many seats in his car. Reports that too much information overwhelms him and he has to focus more than previously. Feels more frustrated by it. Saw neurology in [place] last in 2021. Has an upcoming appointment with neurology in August 2024. I was able to speak to Dr. Diaz who encouraged me to go ahead with getting an MRI of the evaluate for any changes in his brain in the interim since imaging in 2019. I additionally ordered TSH, syphilis B12 to rule out any underlying etiology. Finally, Dr. Diaz also requested that I send for a neuropsych evaluation, this was placed. Coronary artery disease involving [place] coronar y artery 06/04/2020 Assessment & Plan (05/30/2025 12:06 PM EDT): Hx of stenting. Pt denies any CP or SOB. Pt continues on aspirin and atorvastatin. No changes in management. Assessment & Plan (01/02/2025 11:34 AM EST): Patient does not have any symptoms concerning for angina at this time. He is euvolemic on exam today. He reports his shortness of breath has improved since his last visit here. At patient's previous visit it was noted that his amlodipine was increased to 10 mg daily to see if it improved with his shortness of breath. It was reported that if patient feels like his shortness of breath is getting worse or not getting better we would consider repeat right left heart cath . However patient reports that shortness of breath has improved and it has not been bothering him. Patient will continue to monitor for signs and symptoms. Patient will continue on aspirin 81 mg daily. Assessment & Plan (06/10/2024 2:30 PM EDT): Cardiac catheterization back in 2019 with stenting. Had an echo and a stress test recently that were both normal. Takes atorvastatin 80mg daily and Aspirin. Sees cardiology. Mild aortic stenosis 05/31/2020 Assessment & Plan (05/30/2025 12:06 PM EDT): Noted on Echo. No significant changes on most recent echo. No changes in management. Assessment & Plan (01/02/2025 11:30 AM EST): Patient asymptomatic. Echocardiogram April 2024 shows normal LV function EF 60% mild LVH mild to moderate aortic stenosis. We will get an updated echocardiogram before his next follow-up here. Assessment & Plan (06/10/2024 2:34 PM EDT): Again seen on echo in April 2024. Sees cardiology. Diabetes mellitus type 2 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 07/2018 Assessment & Plan (08/14/2025 9:08 AM EDT): Type 2 diabetes mellitus, well-controlled with last A1c within goal in July. -Schedule diabetes visit in October. -Order A1c, cholesterol, and microalbumin creatinine ratio tests in October. -Continue metformin 1000 mg twice daily and Januvia 100mg daily. -Continue Ramipril and Atorvastatin. -Needs a diabetic eye exam, has appointment. -Up-to-date with microalbumin creatinine ratio, lipid panel and A1c. -Quarterly follow-up appointments to monitor HbA1c, blood pressure, feet check for neuropathy. -Annual screenings: lipid panel, DM eye examination, for neuropathy, microalbumin/cr for nephropathy. -I encouraged a healthy lifestyle, which includes regular physical activity and a balanced, diabetes-appropriate diet. If necessary, can arrange a consultation with a dietitian for further dietary counseling Assessment & Plan (03/20/2025 5:22 PM EDT): Well-managed diabetic. Last A1C was 6.3. His technology sales specialist encouraged him to try a GLP1 and we did attempt Ozempic but he did not tolerate. Back on Januvia -Continue metformin 1000 mg twice daily and Januvia 100mg daily. -Continue Ramipril and Atorvastatin. -Needs a diabetic eye exam, has appointment. -Up-to-date with microalbumin creatinine ratio, lipid panel and A1c. -Quarterly follow-up appointments to monitor HbA1c, blood pressure, feet check for neuropathy. -Annual screenings: lipid panel, DM eye examination, for neuropathy, microalbumin/cr for nephropathy. -Due for flu shot, has received pneumococcal vaccines. -Is due for a microalbumin/cr level. -I encouraged a healthy lifestyle, which includes regular physical activity and a balanced, diabetes-appropriate diet. If necessary, can arrange a consultation with a dietitian for further dietary counseling Assessment & Plan (12/20/2024 2:20 PM EST): Previously well-managed diabetic, HbA1c levels have been very slightly above the target range. Last A1C was 7.1. His technology sales specialist encouraged him to try a GLP1 and we did attempt Ozempic but he did not tolerate. Back on Januvia but A1C still elevated. Would be willing to give him another 3 months to try bringing down the A1C to goal naturally, especially since he is so close. Good medication adherence, has been working on exercise with a personal banking advisor, hopefully we can get there. Blood pressure and most recent cholesterol panel acceptable. No signs of diabetic complications such as retinopathy, neuropathy or nephropathy. -Continue metformin 1000 mg twice daily and Januvia 100mg daily. -Continue Ramipril and Atorvastatin. -Needs a diabetic eye exam for March, has appointment. -Up-to-date with microalbumin creatinine ratio, lipid panel and A1c. -Quarterly follow-up appointments to monitor HbA1c, blood pressure, feet check for neuropathy. -Annual screenings: lipid panel, DM eye examination, for neuropathy, microalbumin/cr for nephropathy. -Due for flu shot, has received pneumococcal vaccines. -Is due for a microalbumin/cr level. -I encouraged a healthy lifestyle, which includes regular physical activity and a balanced, diabetes-appropriate diet. If necessary, can arrange a consultation with a dietitian for further dietary counseling. Assessment & Plan (10/18/2024 6:01 PM EST): Did not tolerate the Ozempic. Last A1c was 7.1, mildly elevated but was generally well-controlled. Has been continuing on metformin 1000 mg twice daily. Did discontinue the Ozempic. Is open to restarting the Januvia. We will repeat his A1c in December. Assessment & Plan (08/18/2024 5:07 PM EDT): Well controlled. Last A1C 6.7. On a statin, ZACHARY inhibitor. Microalbumin/cr ratio negative. Takes metformin 1000mg daily and Januvia 100mg daily. UTD with eye exams. Cardiology suggested a GLP1. We discussed this today, I would be open to this. Patient will consider. Since they will potentially be making medication changes with neurology next week, will hold off until next DM follow up. Assessment & Plan (06/10/2024 2:31 PM EDT): Well controlled. A1C usually in the 6s. Takes metformin 1000mg daily and Januvia 100mg daily. UTD with eye exams. On a statin and ZACHARY. Has pending A1c, lipid panel and CMP through cardiology. Will add on microalbumin/cr ratio. Hyperopia with astigmatism and presbyopia, bilat eral 05/17/2018 Diastolic dysfunction 08/25/2016 H/O seasonal allergies 11/28/2014 GERD (gastroesophageal reflux disease) 1 Assessment & Plan (06/09/2024 10:53 AM EDT): Uses Tums as needed. Trialed a week of Nexium. Sees gastroenterology. Resolved Problems Problem Noted Date Diagnosed Date Resolved Date Hypertension 06/09/2024 06/10/2024 Sleep apnea 06/09/2024 06/09/2024 Nonrheumatic aortic valve stenosis 02/01/2024 06/09/2024 Atherosclerosis of [place] co ronary artery of [place] heart without angina pectoris 02/01/202411/2023 Calculus of gallbladder without cholecystitis 09/08/20 16 06/09/2024 Recurrent major depressive disorder 05/27/2012 06/09/2024 Impingement syndrome of shoulder 04/09/2012 06/09/2024 Hypertriglyceridemia 02/26/2012 024 Encounters Date Type Department Care Team Description 08/28/2025 2:30 PM EDT Office Visit [facility] Neurology [address] [place] [address] Byron Diaz MD Dizziness and giddiness (Primary Dx); Cervical myofascial pain syndrome; Tremors of nervous system; 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; Screening for prostate cancer; Need for hepatitis C screening test 08/08/2025 2:15 PM EDT Office Visit [facility] [address] [place] [address] Adolfo Ayala MD Bell, Ross, PT Vertigo (Primary Dx) 08/01/2025 9:40 AM EDT Office Visit [facility] Spine Medicine [address] [place] [address] Bucky Sierra MD Cervical facet joint syndrome (Primary Dx) 07/27/2025 10:15 AM EDT Office Visit [facility] [address] [place] [address] Adolfo Ayala MD Bell, Ross, PT Vertigo (Primary Dx) 07/26/2025 Refill [facility] Neurology [address] [place] [address] Byron Diaz MD Medication Refill 07/25/2025 10:53 AM EDT - 07/25/2025 11:59 PM EDT Hospital Encounter [facility] [address] [place] [id number] Flum[place]Stock[place]el Marianne nassar Discharge Disposition: Home or Self Care 07/24/2025 9:45 AM EDT Office Visit [address] [place] [address] Flum[place] Marianne nassar Lightheadedness; Seborrheic dermatitis, unspecified; Rash 07/21/2025 8:27 AM EDT - 07/21/2025 11:59 PM EDT Hospital Encounter [facility] [address] [place] [address] Flum[place] Marianne nassar Discharge Disposition: Home or Self Care 07/20/2025 Orders Only [address] [place] [address] Flum-Marianne Alvarez Diabetes mellitus type 2 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 (Primary Dx) 07/11/2025 Orders Only [facility] [address] [place] [address] Danyel Morrison MD 07/07/2025 8:00 AM EDT Office Visit [facility] [address] [place] [address] Adolfo Ayala MD Bell, Ross, PT Vertigo (Primary Dx) 07/07/2025 Telephone [facility] [address] [place] [address] Kalia Hdz, PT 07/07/2025 Telephone [facility] [address] [place] [address] Kalia Hdz, PT 07/05/2025 8:00 AM EDT Office Visit [facility] [address] [place] [address] Adolfo Ayala MD Bell, Ross, PT Vertigo (Primary Dx) 06/30/2025 Plan of Care Documentation [facility] [address] [place] [address] 06/28/2025 10:15 AM EDT Office Visit [facility] [address] [place] [address] Adolfo Ayala MD Bell, Ross, PT Vertigo (Primary Dx) 06/21/2025 10:40 AM EDT Office Visit [facility] [address] [place] [address] 3rd Floor, [address] [place] [address] Adolfo Ayala MD Coronary artery disease involving [place] coronary artery of [place] heart without angina pectoris (Primary Dx); Benign essential hypertension; Mild aortic stenosis; Diastolic dysfunction 06/19/2025 12:30 PM EDT Office Visit [facility] Orthopedics & Sports Medicine [address] [place] [address] Peggy Brunner MD Bilateral carpal tunnel syndrome (Primary Dx) 06/08/2025 3:45 PM EDT Office Visit [address] [place] [address] Flum-Marianne Alvarez Lightheadedness 06/01/2025 10:02 AM EDT - 06/01/2025 11:59 PM EDT Hospital Encounter [facility] [address] [place] [address] Debra Hernandez DNP Discharge Disposition: Home or Self Care from Last 3 Months Immunizations Immunization Administration Dates Next Due COVID-19 (Pre-08/31) Moderna Vaccine, mRNA, PF 05/18/2023 COVID-19, Unspecified Formulation 12/23/2020, Hepatitis B, unspecified formulation 03/16/2019 Influenza High-Dose Trivalen t Preservative Free IM 08/18/2024 Influenza Quadrivalent Prese rvative Free IM 08/25/2016,09/13/2015,08/09/2014,09/21,11/04/2010 Influenza, Unspecified Formulation 08/22,08/05/2022,08/23/2021,08/13,09/26/2019,12/15/2018,11/30/2017 ,09/28/2012,07/10/2011,08/02/2010,07/12,10/02/2008 Pneumococcal conjugate PCV20 08/18/2024 Pneumococcal conjugate, unsp ecified formulation 09/13/2015 Pneumococcal polysaccharide PPSV23 05/27/2017, RSV Vaccine (bivalent) 08/22/2023 Td, unspecified formulation 11/21/2005 Zoster recombinant 02/14/2022,11/17/2021 Family History Medical History Relation Comments COPD Brother Emphysema Brother ADD / ADHD Daughter Autism Daughter Bipolar disorder Daughter COPD Father Emphysema Father Lung disease Father Smoker and boile r room. Snoring Father Aortic valve stenosis Mother 96 Hypertension Son Sleep apnea Neg Hx Relation Status Comments Brother Daughter Alive Father Maternal Grandfather Maternal Grandmother Mother Paternal Grandfather Paternal Grandmother Son Alive Social History Tobacco Use Types Packs/Day Years Used Date Smoking Tobacco: Former Cigarettes 1 9 1 1977 Smokeless Tobacco: Never Tobacco Cessation:Counseling Given: Not Answered Alcohol Use Standard Drinks/Week Comments Not Currently [...] have you moved in the past 12 thu ths? One time 06/06/2024 Paying for Meds [...] on file Sexual Orientation Not on file Last Filed Vital Signs Vital Sign Reading Time Taken Comments Blood Pressure 118/59 08/28/2025 2:32 PM EDT Pulse 64 08/28/2025 2:32 PM EDT Temperature 36.3 C (97.4 F) 08/14/2025 8:09 AM EDT Respiratory Rate 14 10/07/2024 9:00 PM EST Oxygen Saturation 97% 08/28/2025 2:32 PM EDT Inhaled Oxygen Concentration - - Weight 84.8 kg (187 lb) 08/14/2025 8:09 AM EDT Height 174 cm (5' 8.5 ) 08/14/2025 8:09 AM EDT Body Mass Index 28.02 08/14/2025 8:09 AM EDT Plan of Treatment Upcoming Encounters Date Type Department Care Team (Late st Contact Info) Description 08/28/2025 Procedure Pass [address] [address] 08/28/2025 Procedure Pass [address] [address] 09/05/2025 9:15 AM EDT Office Visit [facility] [address] [address] Debbie Waller MD, PhD [address] [place] [address] [email or web address] 09/20/2025 3:30 PM EST Office Visit [facility] Geriatrics [address] [place] [address] Mateo Lozano DO [address] [place] [address] 09/26/2025 1:40 PM EST Office Visit [facility] Orthopedics & Sports Medicine [address] [place] [address] Ivory Camejo PA-C [address] [place] [address] Orthopedics & Sports Medicine, [place] [address] 10/01/2025 7:05 AM EST Appointment [address] [address] Byron Diaz MD [address] [place] [address] 10/04/2025 10:35 AM EST Appointment [address] [address] Byron Diaz MD [address] [place] [address] 10/16/2025 9:30 AM EST Office Visit [address] [place] [address] Marianne Mondragon [address] [place] [address], [address] [place] [address] [email or web address] 10/24/2025 10:30 AM EST Office Visit [facility] [address] [place] [address] 3rd [facility], [address] [place] [address] Debra Hernandez DNP [address] [place] [address], [address] [place] [address] 11/28/2025 10:00 AM EST Office Visit [facility] Neurology [address] [place] [address] [place] [address] Sidney Rodriguez PA-C [address] [place] [address], 3rd [place] [address] [email or web address] 11/22/2026 10:00 AM EST Office Visit [facility] [address] [place] [address] Marianne Mondragon [address] [facility], [address] [place] [address] [email or web address] Health Maintenance Due Date Last Done Comments HEPATITIS C SCREENING 1967 COLOGUARD 1994 COLONOSCOPY 1994 COLORECTAL CANCER SCREENING 1994 FIT TEST 1994 FOBT 1994 SIGMOIDOSCOPY 1994 VIRTUAL COLONOSCOPY 1994 Adult Td,Tdap Booster 11/21/2015 11/21/2005 INFLUENZA VACCINE (#1) 2025 , 08/22/2023, 08/05/2022, Additional history exists COVID-19 VACCINE (2024- season) 2025 07/28/2025, 11/16/2024, 06/10/2024, Additional history exists HEMOGLOBIN A1C 01/18/2026 07/21/2025, 04/10, 03/15/2025, Additional history exists BLOOD PRESSURE 02/26/2026 08/28/2025 DIABETIC EYE EXAM 04/26/2026 04/26/2025, , 05/17/2018 CREATININE LEVEL 05/05/2026 05/05/2025, 09/2024, 10/07/2024, Additional history exists POTASSIUM LEVEL 05/05/2026 05/05/2025, 10/09, 10/07/2024, Additional history exists DEPRESSION SCREENING 08/08/2026 08/08/2025, 08/08/20 25 ZOSTER VACCINES Completed 02/14/2022, 11/17/2021 RSV VACCINE Completed 08/22/2023 PNEUMOCOCCAL VACCINES (50+ years) Completed 08/18/2024, 05/27/2017, 11/04/2010 SMOKING STATUS SCREENING (Once After 26 Yrs) Completed 08/14/2025 HEPATITIS A VACCINES Aged Out No long er eligible based on patient's age to complete this topic HIB VACCINES Aged Out No longer eligi ble based on patient's age to complete this topic MENINGOCOCCAL VACCINES (ACWY) Aged Out No longer eligible based on patient's age to complete this topic MENINGOCOCCAL VACCINES (B) Aged Out N o longer eligible based on patient's age to complete this topic Medical Devices Not on file Procedures Procedure Name Priority Date/Time Associated Diagnosis Comments Ehrlichia/anaplasma PCR Routine 07/25/2025 10:53 AM EDT Lightheadedness BABESIA SPECIES PCR Routine 07/25/2025 1 0:53 AM EDT Lightheadedness LYME SCREEN WITH REFLEX TO WESTERN BLOT, BLOOD Routine 07/25/2025 10:53 AM EDT Lightheadedness HEMOGLOBIN A1C Routine 07/21/2025 8:27 AM EDT Diabetes mellitus type 2 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 OUTSIDE PROCEDURE Routine 06/29/2025 1:5 9 PM EDT TSH WITH REFLEX Routine 06/01/2025 10:03 AM EDT Lightheadedness Cold intolerance FREE T4 Routine 06/01/2025 10:03 AM EDT Lightheadedness Cold intolerance T3, TOTAL Routine 06/01/2025 10:03 AM EDT Lightheadedness Cold intolerance COMPREHENSIVE METABOLIC PANEL Routine 05/05/2025 3:30 PM EDT Lightheadedness HM DIABETES EYE EXAM FOR RESULT ENTRY ONLY Routine 04/26/2025 3:33 PM EDT from Last 3 Months or Most Recently Relevant to Health Maintenance Results * Babesia species PCR (07/25/2025 10:53 AM EDT) B.Microti PCR Negative Negative ARIAN RODRIGUEZ DPT OF LAB MED AND PAT+ B.Duncani PCR Negative Negative ARIAN RODRIGUEZ DPT OF LAB MED AND PAT+ B.Divergens/MO-1 PCR Negative Negative [facility] DPT OF LAB MED AND PAT+ Comment: (NOTE) ADDITIONAL INFORMATION This test was developed and its performance characteristics determined by [facility] in a manner consistent with CLIA requirements. This test has not been cleared or approved by the U.S. Food and Drug Administration. Blood 07/25/2025 10:5 3 AM EDT 07/25/2025 10:55 AM EDT [employer] LAB BLOOD ORDERABLES Final Result Performing Organization Address [facility] Co de Phone Number [facility] DPT OF LAB MED AND PAT+ [address] [place] [address] * Ehrlichia/anaplasma PCR (07/25/2025 10:53 AM EDT) ANAPLASMA PHAGOCYTO Negative Negative [facility] DPT OF LAB MED AND PAT+ EHRLICHIA CHAFFEENS Negative Negative [facility] DPT OF LAB MED AND PAT+ EHRL EWINGII/CANIS Negative Negative [facility] DPT OF LAB MED AND PAT+ EHRL MURIS-LIKE Negative Negative [facility] DPT OF LAB MED AND PAT+ Comment: (NOTE) ADDITIONAL INFORMATION This test was developed and its performance characteristics determined by [facility] in a manner consistent with CLIA requirements. This test has not been cleared or approved by the U.S. Food and Drug Administration. Blood 07/25/2025 10:5 3 AM EDT 07/25/2025 10:55 AM EDT [employer] LAB BLOOD ORDERABLES Final Result Performing Organization Address City/[facility]/ZIP Co de Phone Number [facility] DPT OF LAB MED AND PAT+ [address] [place] [address] * Lyme Screen with Reflex to Immunoblot, Blood (07/25/2025 10:53 AM EDT) Lyme AB IgG Negative Negative [facility] Lyme AB IgM Negative Negative [facility] Blood 07/25/2025 10:5 3 AM EDT 07/25/2025 10:55 AM EDT Marianne Ferrell[employer] LAB BLOOD ORDERABLES Edited Result - Final [address] [address] * (ABNORMAL) Hemoglobin A1c (07/21/2025 8:27 AM EDT) HEMOGLOBIN A1C 6.3(H) 4.3 - 5.8 % [facility] Blood 07/21/2025 8:27 AM EDT 07/21/2025 8:30 AM EDT Marianne Mariaelenakolby[facility] LAB BLOOD ORDERABLES Final Result Performing Organization Address [facility]/ZIP Co de Phone Number [address] [address] * Outside Procedure (06/29/2025 1:59 PM EDT) Historical Provider MD PROCEDURE/MINOR SURGICAL PERFORMABLES Final Result * TSH with reflex (06/01/2025 10:03 AM EDT) TSH 2.57 0.27 - 4.20 uIU/mL [facility] Blood 06/01/2025 10:0 3 AM EDT 06/01/2025 10:06 AM EDT Debra Hernandez [facility] LAB BLOOD ORDERABLES Final Resul t Performing Organization Address City/[facility]/ZIP Co de Phone Number [address] [address] * T3, Total (06/01/2025 10:03 AM EDT) TOTAL T3 87 60 - 181 ng/dL [facility] Blood 06/01/2025 10:0 3 AM EDT 06/01/2025 10:05 AM EDT [facility] LAB BLOOD ORDERABLES Final Resul t [address] [address] * Free T4 (06/01/2025 10:03 AM EDT) FREE T4 1.4 0.9 - 1.7 ng/dL [facility] Blood 06/01/2025 10:0 3 AM EDT 06/01/2025 10:06 AM EDT [facility] LAB BLOOD ORDERABLES Final Resul t Performing Organization Address City/[facility] Co de Phone Number [address] [address] * (ABNORMAL) Comprehensive metabolic panel (05/05/2025 3:30 PM EDT) [facility] SODIUM 135 133 - 146 mmol/L [facility] POTASSIUM 4.8 3.3 - 5.1 mmol/L [facility] CHLORIDE 98 96 - 108 mmol/L [facility] CO2 25 21 - 35 mmol/L [facility] BUN 29(H) 6 - 19 mg/dL [facility] CREATININE 0.80 0.5 - 1.5 mg/dL [facility] GLUCOSE 178(H) 70 - 99 mg/dL [facility] ALBUMIN 4.5 3.9 - 4.8 g/dL [facility] TOTAL PROTEIN 7.1 6.5 - 8.0 g/dL [facility] CALCIUM 9.7 8.4 - 10.3 mg/dL [facility] ALKALINE PHOSPHATASE 58 39 - 117 U/L [facility] TOTAL BILIRUBIN <0.2 0.0 - 1.2 mg/dL [facility] AST 16 0 - 37 U/L [facility] ALT 19 0 - 40 U/L [facility] GLOBULIN 2.6 1 - 4.8 g/dL [facility] EGFR 92 >59 mL/min/1.7 3m2 [facility] Comment:Estimated glomerular filtration rate calculated using the CKD-EPI refit equation. ANION GAP 17 10 - 20 mmol/L [facility] Blood 05/05/2025 3:30 PM EDT 05/05/2025 3:32 PM EDT us Marianne [facility] LAB BLOOD ORDERABLES Final Result [facility] [address] [place] [address] * DIABETES EYE EXAM FOR RESULT ENTRY ONLY (04/26/2025 3:33 PM EDT) us Unknown Unknown HEALTH MAINTENANCE Edited Res ult - Final from Last 3 Months or Most Recently Relevant to Health Maintenance [place] [address] [address] MEDICARE PPO BLUE REPLACEMENT [place] [address] MEDICARE PPO BLUE [place]PLAC[place] [address] MEDICARE PPO BLUE REPLACEMENT [place] MEDICARE PPO BLUE REPLACEMENT Advance Directives For more information, please contact: [phone] (9AM - 5PM Susanne/[facility], Thursday-Thursday) Documents on File Type Date Recorded Patient Casey Saw Operator Expl anation Healthcare Proxy 12/20/2024 Healthcare proxy Care Teams Sports Agent Relationship Specialty Start Date End Date Marianne [place]ragon [address] [place] [address], [address] [place] [address] PCP - General Family Medicine 03/30/24 Additional Source Comments The information contained in this document represents components of the legal health record. It is not the complete legal health record.[facility]
--- OUTSIDE RECORDS SUMMARY | 2025-09-01 13:26 | XMS_ITS | Encounter Summary ---
Author Organization [facility] Address [address] [place] [phone] Phone Care Team Providers Care It Coordinator Name Role Phone MariaelenakolbyMarianne Villareal Primary Care Provider Encounter Details Date Type Department Care Team (Latest Contact Info) Description 04/13/2025 Ancillary Orders [address] [address] Eva Mei MD [address] [place] [address] Orthopedics & Sports Medicine, [place] [address] [email or web address] Osteoarthritis of right hip, unspecified osteoarthritis type (Primary Dx) Social History Tobacco Use Types Packs/Day Years [...] st Contact Info) Description 08/28/2025 Procedure Pass [address] [address] 08/28/2025 Procedure Pass [address] [address] 09/05/2025 9:15 AM EDT Office Visit [facility] [address] [place] [address] Debbie Waller MD, PhD [address] [place] [address] [email or web address] 09/20/2025 3:30 PM EST Office Visit [facility] Geriatrics [address] [place] [address] [place] [address] Mateo Lozano, [address] [place] [address] 09/26/2025 1:40 PM EST Office Visit [facility] Orthopedics & Sports Medicine [address] [place] [address] Ivory Camejo PA-C [address] [place] [address] Orthopedics & Sports Medicine, [place] [address] 10/01/2025 7:05 AM EST Appointment [address] [address] Byron Diaz MD [address] [place] [address], [address] [place] [address] 10/04/2025 10:35 AM EST Appointment [address] [address] Byron Diaz MD [address] [place] [address], [address] [place] [address] 10/16/2025 9:30 AM EST Office Visit [facility] Family Medicine [address] [place] [address] [place] [address] Marianne Mondragon [address] [facility], [address] [place] [address] [email or web address] 10/24/2025 10:30 AM EST Office Visit [facility] [address] 3rd Floor, [address] [place] [address] Debra Hernandez DNP [address] [facility], [address] [place] [address] 11/28/2025 10:00 AM EST Office Visit [facility] Neurology [address] [place] [address] Sidney Rodriguez PA-C 22 [facility], 3rd [place] [address] 11/22/2026 10:00 AM EST Office Visit [facility] Family Medicine [address] [place] [address] Marianne Mondragon 22 [facility], [address] [place] [address] [email or web address] [email or web address] Results Name Type Priority Associated Diagnoses Date /Time FL Guidance Needle Placement Non-Spine Imaging Routine Osteoarthritis of right hip, unspecified osteoarthritis type 04/18/2025 9:17 AM EDT Scheduled Orders Name Type Priority Associated Diagnoses Orde r Schedule FL Guidance Needle Placement Non-Spine Imaging Routine Osteoarthritis of right hip, unspecified osteoarthritis type 1 Occurrences starting 04/13/2025 until 07/14/2025 documented as of this encounter Visit Diagnoses Diagnosis Osteoarthritis of right hip, unspecified osteoarthritis type- Primary documented in this encounter Additional Health Concerns Assessment Noted Time PHQ-2 Depression Total Score: 2 08/16/20 24 4:09 PM EDT documented as of this encounter Care Teams It Coordinator Relationship Specialty Start Date End Date Marianne Mondragon [address] [place] [address], [address] [place] [address] [email or web address] PCP - General Family Medicine 03/30/24 documented as of this encounter Additional Source Comments The information contained in this document represents components of the legal health record. It is not the complete legal health record.[facility]
--- OUTSIDE RECORDS SUMMARY | 2025-09-01 13:26 | XMS_ITS | Encounter Summary ---
Author Organization [facility] Address [address] [place] [address] [place] [address] Phone Care Team Providers Care Nuclear Plant Operator Name Role Phone Marianne [place] Primary Care Provider [phone] Encounter Details Date Type Department Care Team (Late st Contact Info) Description 08/15/2025 Orders Only [facility] Family Medicine [address] [place] [address] Unknown, Unknown, Social History Tobacco Use Types Packs/Day Years [...] st Contact Info) Description 08/28/2025 Procedure Pass [address] [address] 08/28/2025 Procedure Pass [address] [address] 09/05/2025 9:15 AM EDT Office Visit [facility] [address] [place] [address] Debbie Waller MD, PhD [address] [place] [address] [email or web address] 09/20/2025 3:30 PM EST Office Visit [facility] Geriatrics [address] [place] [address] Mateo Lozano DO [address] [place] [address] 09/26/2025 1:40 PM EST Office Visit [facility] Orthopedics & Sports Medicine [address] [place] [address] Ivory Camejo PA-C [address] [place] [address] Orthopedics & Sports [facility], [place] [address] 10/01/2025 7:05 AM EST Appointment [address] [address] Byron Diaz MD [address] [place] [address], [address] [place] [address] 10/04/2025 10:35 AM EST Appointment [address] [address] Byron Diaz MD [address] [place] [address], [address] [place] [address] 10/16/2025 9:30 AM EST Office Visit [facility] Family [address] [place] [address] Marianne Mondragon 22 [facility], [address] [place] [address] [email or web address] 10/24/2025 10:30 AM EST Office Visit [facility] [address] [place] [address] [address]rd Floor, [address] [place] [address] David Debra, JONNATHAN [address] [facility], [address] [place] [address] 11/28/2025 10:00 AM EST Office Visit [facility] Neurology [address] [place] [address] [place] [address] Sidney Rodriguez PA-C [address] [facility], 3rd [place] [address] 11/22/2026 10:00 AM EST Office Visit [facility] Medicine [address] [place] [address] Marianne Mondragon [address] [place] [address], [address] [place] [address] [email or web address] documented as of this encounter Procedures Procedure Name Priority Date/Time Associated Diagnosis Comments DIABETES EYE EXAM FOR RESULT ENTRY ONLY Routine 04/26/2025 3:33 PM EDT documented in this encounter Results * DIABETES EYE EXAM FOR RESULT ENTRY ONLY (04/26/2025 3:33 PM EDT) us Unknown Unknown HEALTH MAINTENANCE Edited Res ult - Final documented in this encounter Visit Diagnoses Not on filedocumented in this encounter Additional Health Concerns Assessment Noted Time PHQ-9 Depression Total Score: 9 08/08/20 25 9:24 AM EDT PHQ-2 Depression Total Score: 5 08/08/20 25 9:24 AM EDT documented as of this encounter Care Teams Nuclear Plant Operator Relationship Specialty Start Date End Date Marianne Mondragon [address] [place] [address], [address] [place] [address] PCP - General Family Medicine 03/30/24 documented as of this encounter Additional Source Comments The information contained in this document represents components of the legal health record. It is not the complete legal health record.[facility]
--- OUTSIDE RECORDS SUMMARY | 2025-09-01 13:26 | XMS_ITS | Encounter Summary ---
Author Organization [facility] Address [address] [place] [address] Phone Care Team Providers Care A&P Mechanic Name Role Phone Marianne Mondragon Primary Care Provider [phone] Encounter Details Date Type Department Care Team (Late st Contact Info) Description 10/18/2024 Ancillary Orders [address] [address] Eva Mie MD [address] [place] [address] Orthopedics & Sports Medicine, [place] [address] [email or web address] Right hip pain (Primary Dx) Social History Tobacco Use Types [...] st Contact Info) Description 08/28/2025 Procedure Pass [address] [address] 08/28/2025 Procedure Pass [address] [address] 09/05/2025 9:15 AM EDT Office Visit [facility] [address] [place] [address] Debbie Waller MD, PhD [address] [place] [address] [email or web address] 09/20/2025 3:30 PM EST Office Visit [facility] Geriatrics [address] [place] [address] [place] [address] Mateo Lozano DO [address] [place] [address] 09/26/2025 1:40 PM EST Office Visit [facility] Orthopedics & Sports Medicine [address] [place] [address] Ivory Camejo PA-C [address] [place] [address] Orthopedics & Sports Medicine, [facility] [place] [address] 10/01/2025 7:05 AM EST Appointment [address] [address] Byron Diaz MD [address] [place] [address], [address] [place] [address] 10/04/2025 10:35 AM EST Appointment [address] [address] Byron Diaz MD [address] [place] [address], [address] [place] [address] 10/16/2025 9:30 AM EST Office Visit [facility] Family Medicine [address] [place] [address] [place] [address] Marianne Mondragon [address] [place] [address], [address] [place] [address] [email or web address] 10/24/2025 10:30 AM EST Office Visit [facility] [address] 3rd Floor, [address] [place] [address] Debra Hernandez DNP [address] [facility], [address] [place] [address] 11/28/2025 10:00 AM EST Office Visit [facility] Neurology [address] [place] [address] Sidney Rodriguez PA-C [address] [facility], 3rd [place] [address] 11/22/2026 10:00 AM EST Office Visit [facility] Family Medicine [address] [place] [address] Marianne Mondragon [address] [facility], [address] [place] [address] [email or web address] documented as of this encounter Visit Diagnoses Diagnosis Right hip pain- Primary Pain in joint, pelvic region and thigh documented in this encounter Additional Health Concerns Assessment Noted Time PHQ-2 Depression Total Score: 2 08/16/20 24 4:09 PM EDT documented as of this encounter Care Teams A&P Mechanic Relationship Specialty Start Date End Date Marianne Mondragon [address] [place] [address], [address] [place] [address] PCP - General Family Medicine 03/30/24 documented as of this encounter Additional Source Comments The information contained in this document represents components of the legal health record. It is not the complete legal health record.[facility]
--- OUTSIDE RECORDS SUMMARY | 2025-09-01 13:26 | XMS_ITS | Encounter Summary ---
Author Organization [facility] Address [address] [place] [address] Phone Care Team Providers Care Lens Cutter Name Role Phone Marianne Mondragon Primary Care Provider Encounter Details Date Type Department Care Team (Late st Contact Info) Description 06/09/2024 Procedure Pass [facility], [facility] - [address] [place] [address] Social History Tobacco Use Types Packs/Day Years Used Date Smoking Tobacco: Former Cigarettes 1 9 9 1977 Smokeless Tobacco: Never Alcohol Use [...] your housing situation today? I have frantz sing 06/06/2024 How many times have you moved in the past 12 thu th? One time 06/06/2024 Paying for Meds Answer [...] computer) with a working camera? Yes 06/06/2024 Sex and Gender Information Value Date Recorded Sex Assigned at Not on file Legal Sex Male 1:40 PM EST Gender Identity Not on file Sexual Orientation Not on file documented as of this encounter Plan of Treatment Upcoming Encounters Date Type Department Care Team (Late st Contact Info) Description 08/28/2025 Procedure Pass [address] [address] 08/28/2025 Procedure Pass [address] [address] 09/05/2025 9:15 AM EDT Office Visit [facility] [address] [address] Debbie Waller MD, PhD [address] [place] [address] [email or web address] 09/20/2025 3:30 PM EST Office Visit [facility] Geriatrics [address] [place] [address] Mateo Lozano DO [address] [place] [address] 09/26/2025 1:40 PM EST Office Visit [facility] Orthopedics & Sports Medicine [address] [place] [address] Ivory Cmaejo PA-C [address] [place] [address] Orthopedics & Sports Medicine, [place] [address] 10/01/2025 7:05 AM EST Appointment [address] [address] Byron Diaz MD [address] [place] [address] 10/04/2025 10:35 AM EST Appointment [address] [address] Byron Diaz MD [address] [place] [address] 10/16/2025 9:30 AM EST Office Visit [address] [place] [address] Marianne Mondragon [address] [place] [address], [address] [place] [address] [email or web address] 10/24/2025 10:30 AM EST Office Visit [facility] [address] [place] [address] 3rd Floor, [address] [place] [address] Debra Hernandez DNP [address] [place] [address], [address] [place] [address] 11/28/2025 10:00 AM EST Office Visit [facility] Neurology [address] [place] [address] [place] [address] Sidney Rodriguez PA-C [address] [place] [address], 3rd [place] [address] 11/22/2026 10:00 AM EST Office Visit [facility] [address] [place] [address] Marianne Mondragon [address] [place] [address], [address] [place] [address] [email or web address] documented as of this encounter Visit Diagnoses Not on filedocumented in this encounter Additional Health Concerns Assessment Noted Time PHQ-2 Depression Total Score: 2 06/06/20 24 11:46 AM EDT documented as of this encounter Care Teams Lens Cutter Relationship Specialty Start Date End Date Marianne Mondragon [address] [place] [address], [address] [place] [address] PCP - General Family Medicine 03/30/24 documented as of this encounter Additional Source Comments The information contained in this document represents components of the legal health record. It is not the complete legal health record.[facility]
--- OUTSIDE RECORDS SUMMARY | 2025-09-01 13:26 | XMS_ITS | Encounter Summary ---
Author Organization [facility] Address [address] [place] [address] Phone Care Team Providers Care Poultry Boner Name Role Phone Pcp, Unknown Primary Care Provider UnavailMarianne Juarez Primary Care Provider Pcp, Unknown Primary Care Provider UnavailMarianne Juarez Primary Care Provider Encounter Details Date Type Department Care Team (Latest Contact Info) Description 01/21/2024 Transcribe Orders [facility] [address] [address] Sandy Marie NP 10 [place] [address] Diarrhea, unspecified type (Primary Dx); Bloating Social History Tobacco Use Types Packs/Day Years Used Date Smoking Tobacco: Never Assessed Education Answer Date Recorded Are you interested in more education? Not on clay e 10/09/2023 Are you concerned about learning? Not on file 10/09/2023 No 10/09/2023 No 10/09/2023 Digital Access Answer Date Recorded No 10/09/2023 No 10/09/2023 Reliable internet access at home? Not on file 10/09/2023 Device with a working camera? Not on file Sex and Gender Information Value Date Recorded Sex Assigned at Not on file Legal Sex Male 1:40 PM EST Gender Identity Not on file Sexual Orientation Not on file documented as of this encounter Plan of Treatment Upcoming Encounters Date Type Department Care Team (Late st Contact Info) Description 08/28/2025 Procedure Pass [address] [address] 08/28/2025 Procedure Pass [address] [address] 09/05/2025 9:15 AM EDT Office Visit [facility] [place] [address] [place] [address] Debbie Waller MD, PhD [address] [place] [address] [email or web address] 09/20/2025 3:30 PM EST Office Visit [facility] Geriatrics [address] [place] [address] Mateo Lozano DO [address] [place] [address] 09/26/2025 1:40 PM EST Office Visit [facility] Orthopedics & Sports Medicine [address] [place] [address] Ivory Camejo PA-C [address] [place] [address] Orthopedics & Sports Medicine, [facility] [place] [address] 10/01/2025 7:05 AM EST Appointment [address] [address] Byron Diaz MD [address] [place] [address], [address] [place] [address] 10/04/2025 10:35 AM EST Appointment [address] [address] Byron Diaz MD [address] [place] [address] [place] [address] 10/16/2025 9:30 AM EST Office Visit [address] [place] [address] Marianne Mondragon [address] [place] [address], [address] [place] [address] [email or web address] 10/24/2025 10:30 AM EST Office Visit [facility] [address] [place] [address] [address]rd Floor, [address] [place] [address] Debra Hernandez DNP [address] [facility], [address] [place] [address] 11/28/2025 10:00 AM EST Office Visit [facility] Neurology [address] [place] [address] [place] [address] Sidney Rodriguez PA-C [address] [place] [address], 3rd [place] [address] 11/22/2026 10:00 AM EST Office Visit [address] [place] [address] Marianne Mondragon [address] [place] [address], [address] [place] [address] [email or web address] documented as of this encounter Results * Stool fat/fiber exam (01/23/2024 8:30 AM EDT) FATTY ACID NORMAL NORMAL [facility] Neutral Fat, stool NORMAL NORMAL [facility] Stool (Stool) 01/23/2024 8:3 0 AM EDT 01/23/2024 9:40 AM EDT us Sandy Marie MEDICAL EQUIPMENT TECHNICIAN BODY FLUIDS AND STOOLS OR DERABLES Final Result [facility] [address] [place] [address] * Pancreatic Elastase, Stool (01/23/2024 8:30 AM EDT) Pancreatic Elastase, Feces >500 >200 (Normal) mcg/g [facility] Stool (Stool) 01/23/2024 8:3 0 AM EDT 01/23/2024 9:40 AM EDT us Sandy Marie MEDICAL EQUIPMENT TECHNICIAN BODY FLUIDS AND STOOLS OR DERABLES Final Result [facility] [address] [place] [address] documented in this encounter Visit Diagnoses Diagnosis Diarrhea, unspecified type- Primary Bloating Flatulence, eructation, and gas pain documented in this encounter Care Teams Poultry Boner Relationship Specialty Start Date End Date Pcp, Unknown PCP - General 10/09/23 01/22/24 Marianne Mondragon [address] [place] [address], [address] [address] [email or web address] PCP - General Family Medicine 01/23/24 01/31/24 Pcp, Unknown PCP - General 02/02/24 03/29/24 Marianne Mondragon [address] [place] [address], [address] [place] [address] [email or web address] PCP - General Family Medicine 03/30/24 documented as of this encounter Additional Source Comments The information contained in this document represents components of the legal health record. It is not the complete legal health record.[facility]
--- OUTSIDE RECORDS SUMMARY | 2025-09-01 13:26 | XMS_ITS | Encounter Summary ---
Author Organization [facility] Address [address] [facility] [address] [place] [address] Phone Care Team Providers Care Hand Stamper Name Role Phone Marianne Mondragon Primary Care Provider [phone] Encounter Details Date Type Department Care Team (Late st Contact Info) Description 10/25/2024 Transcribe Orders [facility] [address] [place] [address] Marianne Mondragon [address] [facility], [address] [place] [address] [email or web address] Social History Tobacco Use Types Packs/Day Years [...] Contact Info) Description 08/28/2025 Procedure Pass [address] [address] 08/28/2025 Procedure Pass [address] [address] 09/05/2025 9:15 AM EDT Office Visit [facility] [place] [place] [facility] [address] [address] Debbie Anton MD, PhD [address] [place] [address] [email or web address] 09/20/2025 3:30 PM EST Office Visit [facility] Geriatrics [address] [place] [address] [place] [address] Mateo Lozano, [address] [place] [address] 09/26/2025 1:40 PM EST Office Visit [facility] Orthopedics & Sports Medicine [address] [place] [address] Ivory Camejo PA-C [address] [place] [address] Orthopedics & Sports [facility], [facility] [place] [address] 10/01/2025 7:05 AM EST Appointment [address] [address] Byron Diaz MD [address] [place] [address] 10/04/2025 10:35 AM EST Appointment [address] [address] Byron Diaz MD [address] [place] [address] 10/16/2025 9:30 AM EST Office Visit [facility] Family Medicine [address] [place] [address] [place] [address] Marianne Mondragon [address] [facility], [address] [place] [address] [email or web address] 10/24/2025 10:30 AM EST Office Visit [facility] [address] 3rd Floor, [address] [place] [address] Debra Hernandez DNP [address] [facility], [address] [place] [address] 11/28/2025 10:00 AM EST Office Visit [facility] Neurology [address] [place] [address] Sidney Rodriguez PA-C [address] [facility], 3rd [place] [address] 11/22/2026 10:00 AM EST Office Visit [facility] Family Medicine [address] [place] [address] Marianne Mondragon [address] [facility], [address] [place] [address] [email or web address] documented as of this encounter Visit Diagnoses Not on filedocumented in this encounter Additional Health Concerns Assessment Noted Time PHQ-2 Depression Total Score: 2 08/16/20 24 4:09 PM EDT documented as of this encounter Care Teams Hand Stamper Relationship Specialty Start Date End Date Marianne Mondragon [address] [place] [address], [address] [place] [address] PCP - General Family Medicine 03/30/24 documented as of this encounter Additional Source Comments The information contained in this document represents components of the legal health record. It is not the complete legal health record.[facility]
--- OUTSIDE RECORDS SUMMARY | 2025-09-01 13:26 | XMS_ITS | Encounter Summary ---
Author Organization [facility] Address [address] [place] [address] Phone Care Team Providers Care City Sanitarian Name Role Phone Marianne Mondragon Primary Care Provider [phone] Encounter Details Date Type Department Care Team (Late st Contact Info) Description 01/02/2025 Procedure Pass [facility] [address] [place] [address] Social History Tobacco Use Types Packs/Day Years Used Date Smoking Tobacco: Former Cigarettes 1 9 1 969 - 1977 Smokeless Tobacco: Never Alcohol Use Standard [...] Contact Info) Description 08/28/2025 Procedure Pass [address] [address] 08/28/2025 Procedure Pass [address] [address] 09/05/2025 9:15 AM EDT Office Visit [facility] [address] [address] Debbie Waller MD, PhD [address] [place] [address] [email or web address] 09/20/2025 3:30 PM EST Office Visit [facility] Geriatrics [address] [place] [address] [place] [address] Mateo Lozano DO 22 [place] [address] 09/26/2025 1:40 PM EST Office Visit [facility] Orthopedics & Sports Medicine [address] [place] [address] Ivory Camejo PA-C [address] [place] [address] Orthopedics & Sports [facility], [facility] [place] [address] 10/01/2025 7:05 AM EST Appointment [address] [address] Byron Diaz MD [address] [place] [address], 2[address] [place] [address] 10/04/2025 10:35 AM EST Appointment [address] [address] Byrno Diaz MD [address] [place] [address], [address] [place] [address] 10/16/2025 9:30 AM EST Office Visit [facility] Family Medicine [address] [place] [address] [place] [address] Marianne Mondragon [address] [facility], [address] [place] [address] [email or web address] 10/24/2025 10:30 AM EST Office Visit [facility] [address] [place] [address] 3rd Floor, [address] [place] [address] Debra Hernandez DNP [address] [facility], [address] [place] [address] 11/28/2025 10:00 AM EST Office Visit [facility] Neurology [address] [place] [address] Sidney Rodriguez PA-C [address] [facility], 3rd [place] [address] 11/22/2026 10:00 AM EST Office Visit [facility] Family Medicine [address] [place] [address] [place] [address] Marianne Mondragon [address] [facility], [address] [place] [address] [email or web address] documented as of this encounter Visit Diagnoses Not on filedocumented in this encounter Additional Health Concerns Assessment Noted Time PHQ-2 Depression Total Score: 2 08/16/20 24 4:09 PM EDT documented as of this encounter Care Teams City Sanitarian Relationship Specialty Start Date End Date Marianne Mondragon [address] [place] [address], [address] [place] [address] PCP - General Family Medicine 03/30/24 documented as of this encounter Additional Source Comments The information contained in this document represents components of the legal health record. It is not the complete legal health record.[facility]
== END 2025-09-01 12:07 | disposition home or self-care (01) ==
LOC: HO.PMC 11:09
PROVIDERS: PCP Student in an Organized Health Care Education/Training Program; Visit Provider Internal Medicine
DX: M47.812 Spondylosis without myelopathy or radiculopathy, cervical region (principal)
CPT/HCPCS: 99204

== ENCOUNTER → 2025-09-01 11:08 | Outpatient (BNVA) | payer MEDICARE, SELFPAY | PROVIDERS: PCP Student in an Organized Health Care Education/Training Program; Visit Provider Internal Medicine | DX: M47.812 Spondylosis without myelopathy or radiculopathy, cervical region (principal); G89.29 Other chronic pain | CPT/HCPCS: 99202 ==

== ENCOUNTER 2025-10-02 12:23 | Outpatient (AMB) | payer MEDICARE, SELFPAY ==
--- OUTSIDE RECORDS SUMMARY | 2025-09-29 18:15 | XMS_ITS | Encounter Summary ---
Author Organization [facility] Address [address] [facility] [address] [place] [address] Phone Care Team Providers Care An/Sqq 89(V)15 Sonar System Journeyman Name Role Phone Marianne Mondragon Primary Care Provider [phone] Bucky Sierra MD Unavailable [phone] Reason for Referral * MRI/CAT Scan - Closed Specialty Diagnoses / Procedures Referred By Ko springer Referred To Contact Radiology Diagnoses Dizziness and giddiness Tremors of nervous system Brisk deep tendon reflexes Procedures MRI Brain CHG MRI BRAIN Byron Diaz MD [address] [place] [address], [address] [place] [address] Phone: tel: fax: mailto:[email or web address] Referral ID Status Reason Start Date Expiration Date Visits Re quested Visits Authorized [id number] Closed 08/29/2025 11/26/2025 1 1 Reason for Visit * MRI/CAT Scan - Closed Specialty Diagnoses / Procedures Referred By Ko springer Referred To Contact Radiology Diagnoses Dizziness and giddiness Tremors of nervous system Brisk deep tendon reflexes Procedures MRI Brain CHG MRI BRAIN Byron Diaz MD [address] [place] [address], [address] [place] [address] Phone: tel: fax: mailto:[email or web address] Referral ID Status Reason Start Date Expiration Date Visits Re quested Visits Authorized [id number] Closed 08/29/2025 11/26/2025 1 1 Encounter Details Date Type Department Care Team (Latest Contact Info) Description 09/29/2025 6:15 PM EST - 09/29/2025 11:59 PM EST Hospital Encounter [facility], [facility] - [address] [place] [address] Byron Diaz MD [address] [place] [address], 2nd [place] [address] [email or web address] Arrived Discharge Disposition: Home or Self Care Social History Tobacco Use Types Packs/Day Years [...] on file documented as of this encounter Medications at Time of Discharge acetaminophen (TYLENOL EXTRA STRENGTH) 500 MG tablet Take 1,500 mg by mouth daily. 1000mg in the morning, and 500mg in the evening. aspirin 81 mg chewable tablet Take 81 mg by mouth daily. atorvastatin (LIPITOR) 80 MG tablet Take 1 tablet (80 mg total) by mouth daily. 90 tablet 3 11/03/2024 clotrimazole (LOTRIMIN) 1 % creamIndications:S eborrheic dermatitis, unspecified Apply topically 2 (two) times a day. 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 90 tablet 3 07/26/2025 FIBER, PSYLLIUM HUSK, ORAL daily. 02/15/2024 JANUVIA 100 mg tabletIndications: Diabetes mellitus type 2 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 Take 1 tablet (100 mg total) by mouth daily. 90 tablet 3 01/12/2025 Medication-Free Text Vitamin D3 100IU 1 tab daily metFORMIN (GLUCOPHAGE) 1000 MG tablet TAKE 1 TABLET BY MOUTH TWICE A DAY 180 tablet 3 03/17/2025 mirtazapine (REMERON) 15 MG tablet take 1 tablet by mouth everyday at bedtime multivit-min/folic /vit K/lycop (ONE-A-DAY MEN'S MULTIVITAMIN ORAL) daily. omega-3 fatty acids-fish oil 340-1,000 mg Cap Take by mouth daily. propranoloL (INDERAL) 20 MG immediate release tablet TAKE 1 TABLET BY MOUTH TWICE A DAY 180 tablet 3 03/17/2025 ramipriL (ALTACE) 5 MG capsuleIndications :Benign essential hypertension Take 1 capsule (5 mg total) by mouth 2 (two) times a day. 30 capsule 11 05/30/2025 sertraline (ZOLOFT) 100 MG tablet Take 1.5 tablets (150 mg total) by mouth daily. 135 tablet 3 04/24/2025 tamsulosin (FLOMAX) 0.4 mg Cap 0.4 mg daily. 05/26/2025 documented as of this encounter Plan of Treatment Upcoming Encounters Date Type Department Care Team (Late st Contact Info) Description 10/16/2025 9:30 AM EST Office Visit [facility] Family Medicine [address] [place] [address] [place] [address] Marianne Mondragon [address] [facility], [address] [place] [address] [email or web address] 10/24/2025 10:30 AM EST Office Visit [facility] [address] [place] [address] 3rd Floor, [address] [place] [address] Debra Hernandez DNP [address] [place] [address], [address] [place] [address] 11/16/2025 10:20 AM EST Office Visit [facility] Orthopedics & Sports Medicine [address] [place] [address] Ivory Camejo PA-C [address] [place] [address] [facility] [place] [address] 11/28/2025 10:00 AM EST Office Visit [facility] Neurology [address] [place] [address] Sidney Rodriguez PA-C [address] [facility], 3rd [place] [address] 01/02/2026 12:30 PM EST Office Visit [facility] [address] [place] [address] Debbie Waller MD, PhD [address] [place] [address] [email or web address] 03/22/2026 3:30 PM EDT Office Visit [facility] Geriatrics [address] [place] [address] [place] [address] Mateo Lozano DO 22 [place] [address] 11/22/2026 10:00 AM EST Office Visit [facility] Family Medicine [address] [place] [address] Marianne Mondragon [address] [facility], [address] [place] [address] [email or web address] [email or web address] Results Name Type Priority Associated Diagnoses Date /Time MRI Brain Imaging Routine Dizziness and giddiness Tremors of nervous system Brisk deep tendon reflexes 09/29/2025 7:16 PM EST Scheduled Orders Name Type Priority Associated Diagnoses Orde r Schedule MRI Brain Imaging Routine Dizziness and giddiness Tremors of nervous system Brisk deep tendon reflexes As Needed for 1 Occurrences starting 09/29/2025 until 09/29/2025 documented as of this encounter Visit Diagnoses Diagnosis Dizziness and giddiness Tremors of nervous system Brisk deep tendon reflexes documented in this encounter Additional Health Concerns Assessment Noted Time PHQ-9 Depression Total Score: 4 09/14/20 11:36 AM EST PHQ-2 Depression Total Score: 2 09/14/20 11:36 AM EST documented as of this encounter Care Teams An/Sqq 89(V)15 Sonar System Journeyman Relationship Specialty Start Date End Date Marianne Mondragon [address] [place] [address], [address] [place] [address] [email or web address] PCP - General Family Medicine 03/30/24 Bucky Sierra MD [address] [place] [address], 2nd [place] [address] Physical Medicine and Rehabilitation 09/05/25 documented as of this encounter Additional Source Comments The information contained in this document represents components of the legal health record. It is not the complete legal health record.[facility]
--- NOTE | 2025-10-02 12:28 | A.OFFVIS_ITS ---
Vital Signs 10/02/25 12:30 Height 5 ft 10 in Weight 188 lb BMI 27.0 BP 138/64 Blood Pressure Location Lt brachial Position Sitting Respiration 16 Pulse 64 Pulse Source Pulse Oximeter Pulse Oximetry (%) 97 Oxygen Delivery Method Room Air Intake Visit Reasons: MRI results Operations Manager Station Required: No Accompanied by: Spouse Allergies No Known Allergies Allergy (Verified 10/02/25 12:33) Medication List - Last Reconciled 10/02/25 by Luz Wallis LPN acetaminophen 500 mg PO Q6H aspirin 81 mg PO DAILY atorvastatin (Lipitor) 80 mg PO BEDTIME cholecalciferol (vitamin D3) 25 mcg PO DAILY donepezil 10 mg PO DAILY metformin 1,000 mg PO BID multivitamin 1 tab PO DAILY omega 7-xmz-lzr-fish oil 1,000 (120-180) mg (Fish Oil) 1 cap PO DAILY propranolol 20 mg PO BID psyllium husk (Daily Fiber) 0.4 grams PO BEDTIME ramipril 5 mg PO BID sertraline 150 mg PO DAILY sitagliptin phosphate (Januvia) 100 mg PO DAILY tamsulosin 0.4 mg PO BEDTIME HPI HPI MRI results: Details: History of Present Illness The patient is a 74-year-old individual presenting with MRI review and 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 The patient has been experiencing dizziness since April, described as a fuzzy feeling with a tendency to fall. The dizziness has been persistent and has impacted the patient's balance, leading to consultations at [facility] for vestibular assessments. The MRI findings indicate compressive myelopathy, characterized by a signal change within the spinal cord due to compression, which could lead to worsening balance and weakness if untreated. The patient has been advised that surgical intervention may be necessary to prevent further neurological deterioration. 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 [facility] Medical History (Updated 10/03/25 @ 15:29 by Hilton Hines MD) Diabetes Hypertension Memory loss Hyperlipidemia Cervical facet joint syndrome Physical Exam Vital Signs: Last Vital Signs Pulse 64 10/02/25 12:30 Resp 16 10/02/25 12:30 BP 138/64 10/02/25 12:30 Pulse Ox 97 10/02/25 12:30 Oxygen Delivery Method Room Air 10/02/25 12:30 BMI result Body Mass Index 27.0 Assessment & Plan Assessment & Plan (1) Cervical spinal stenosis: Code(s): M48.02 - Spinal stenosis, cervical region Category: Medical Plan Plan Patient was informed and verbally consented to the use of an ambient scribe for clinic note documentation during this visit. 1. Compressive Myelopathy - Surgical intervention is recommended to prevent further neurological det erioration. - Referral to a neurosurgeon for evaluation and potential surgery. 2. Dizziness - Dizziness management includes vestibular assessments at [facility]. - Consideration of surgical intervention due to its association with compressive myelopathy. Discussion Notes I discussed with the patient the findings of the MRI, which indicate compressive myelopathy, and the potential need for surgical intervention to prevent further neurological deterioration. We reviewed the options for neurosurgical consultation, including Dr. Pena at [facility] and other specialists in [place], to determine the best course of action. Patient Instructions - Follow up with your neurologist to obtain a referral to a neurosurgeon. - Consider scheduling a consultation with Dr. Pena at [facility] or other recommended specialists in [place]. - Cancel the scheduled injections and prioritize surgical consultation. Coding Level of Care Code Est Pt Level 3 (00834) Diagnoses Cervical spinal stenosis M48.02
[2025-10-02 12:30] VITALS: BP 138/64; PULSE 64; RESP 16; O2SAT 97; BMI 27.0
--- OUTSIDE RECORDS SUMMARY | 2025-10-02 16:23 | XMS_ITS | Encounter Summary ---
Author Organization [facility] Address [address] [place] [address] [place] [address] Phone Care Team Providers Care Content Assistant Name Role Phone Pcp, Unknown Primary Care Provider UnavailMarianne Juarez Primary Care Provider Bucky Sierra MD Unavailable [phone] Encounter Details Date Type Department Care Team (Late st Contact Info) Description 02/01/2024 Procedure Pass [facility] [address] [place] [address] Social History Tobacco Use Types Packs/Day Years Used Date Smoking Tobacco: Never Smokeless Tobacco: Never Education Answer Date Recorded Are you interested [...] Description 10/16/2025 9:30 AM EST Office Visit [facility] [address] [place] [address] Marianne Mondragon 22 [facility], [address] [place] [address] [email or web address] 10/24/2025 10:30 AM EST Office Visit [facility] [address] [place] [address] 3rd Floor, [address] [place] [address] Debra Hernandez DNP 22 [facility], [address] [place] [address] 11/16/2025 10:20 AM EST Office Visit [facility] Orthopedics & Sports Medicine [address] [place] [address] Ivory Camejo PA-C [address] [place] [address] Orthopedics & Sports Medicine, [place] [address] 11/28/2025 10:00 AM EST Office Visit [facility] Neurology [address] [place] [address] Sidney Rodriguez PA-C 22 [facility], 3rd [place] [address] 01/02/2026 12:30 PM EST Office Visit [facility] Vestibular Lab [address] [address] Debbie Waller MD, PhD [address] [place] [address] [email or web address] 03/22/2026 3:30 PM EDT Office Visit [facility] Geriatrics 22 [place] [address] Mateo Lozano DO 22 [place] [address] 11/22/2026 10:00 AM EST Office Visit [facility] [place] [facility] [address] [address] Marianne Mondragon 22 [facility], [address] [place] [address] [email or web address] documented as of this encounter Visit Diagnoses Not on filedocumented in this encounter Care Teams Content Assistant Relationship Specialty Start Date End Date Pcp, Unknown PCP - General 02/02/24 03/29/24 Marianne Mondragon [address] [place] [address], [address] [place] [address] [email or web address] PCP - General Family Medicine 03/30/24 Bucky Sierra MD [address] [place] [address], 2nd [place] [address] Physical Medicine and Rehabilitation 09/05/25 documented as of this encounter Additional Source Comments The information contained in this document represents components of the legal health record. It is not the complete legal health record.[facility]
--- OUTSIDE RECORDS SUMMARY | 2025-10-02 16:23 | XMS_ITS | Encounter Summary ---
Author Organization [facility] Address [address] [place] [address] Phone Care Team Providers Care Cash Controller Name Role Phone Marianne Mondragon Primary Care Provider Bucky Sierra MD Unavailable [phone] Encounter Details Date Type Department Care Team (Late st Contact Info) Description 08/28/2025 Procedure Pass [facility], [address] [place] [address] Social History Tobacco Use Types Packs/Day Years Used Date Smoking Tobacco: Former Cigarettes 1 07 10 969 1977 Smokeless Tobacco: Never Alcohol Use Standard [...] 10/16/2025 9:30 AM EST Office Visit [facility] [place] [facility] [address] [place] [address] [place] [address] Marianne Mondragon [address] [facility], [address] [place] [address] [email or web address] 10/24/2025 10:30 AM EST Office Visit [facility] [address] [place] [address] 3rd Floor, [address] [place] [address] Debra Hernandez DNP [address] [facility], [address] [place] [address] 11/16/2025 10:20 AM EST Office Visit [facility] Orthopedics & Sports Medicine [address] [place] [address] Ivory Camejo PA-C [address] [place] [address] Orthopedics & Sports Medicine, [facility] [place] [address] 11/28/2025 10:00 AM EST Office Visit [facility] Neurology [address] [place] [address] [place] [address] Sidney Rodriguez PA-C [address] [place] [address], 3rd [place] [address] 01/02/2026 12:30 PM EST Office Visit [facility] Vestibular Lab [address] [address] Debbie Waller MD, PhD [address] [place] [address] [email or web address] 03/22/2026 3:30 PM EDT Office Visit [facility] Geriatrics [address] [place] [address] [place] [address] Mateo Lozano, [address] [place] [address] 11/22/2026 10:00 AM EST Office Visit [facility] [address] [place] [address] [place] [address] Marianne Mondragon [address] [facility], [address] [place] [address] [email or web address] documented as of this encounter Visit Diagnoses Not on filedocumented in this encounter Additional Health Concerns Assessment Noted Time PHQ-9 Depression Total Score: 4 09/14/20 11:36 AM EST PHQ-2 Depression Total Score: 2 09/14/20 11:36 AM EST documented as of this encounter Care Teams Cash Controller Relationship Specialty Start Date End Date Marianne Mondragon [address] [place] [address], [address] [place] [address] [email or web address] PCP - General Family Medicine 03/30/24 Bucky Sierra MD [address] [place] [address], 2nd [place] [address] Physical Medicine and Rehabilitation 09/05/25 documented as of this encounter Additional Source Comments The information contained in this document represents components of the legal health record. It is not the complete legal health record.[facility]
--- OUTSIDE RECORDS SUMMARY | 2025-10-02 16:23 | XMS_ITS | Encounter Summary ---
Author Organization [facility] Address [address] [facility] [address] [place] [address] Phone Care Team Providers Care Measurement Operator Name Role Phone Marianne Mondragon Primary Care Provider [phone] Bucky Sierra MD Unavailable Encounter Details Date Type Department Care Team (Late st Contact Info) Description 07/07/2025 Telephone [facility] Rehabilitation Services [address] [place] [address] Kalia Hdz, PT 8 [place] [address] Social History Tobacco Use Types Packs/Day Years [...] EST Office Visit [facility] [place] [facility] [address] [place] [address] [place] [address] Marianne Mondragon 22 [facility], [address] [place] [address] [email or web address] 10/24/2025 10:30 AM EST Office Visit [facility] [address] [place] [address] 3rd Floor, [address] [place] [address] David DebraJONNATHAN 22 [facility], [address] [place] [address] 11/16/2025 10:20 AM EST Office Visit [facility] Orthopedics & Sports Medicine [address] [place] [address] Ivory Camejo PA-C [address] [place] [address] Orthopedics & Sports Medicine, [place] [address] 11/28/2025 10:00 AM EST Office Visit [facility] Neurology [address] [place] [address] [place] [address] Sidney Rodriguez PA-C [address] [place] [address], 3rd [place] [address] 01/02/2026 12:30 PM EST Office Visit [facility] V[facility]ibular Lab [address] [address] Debbie Waller MD, PhD [address] [place] [address] [email or web address] 03/22/2026 3:30 PM EDT Office Visit [facility] Geriatrics [address] [place] [address] [place] [address] Mateo Lozano DO [address] [place] [address] 11/22/2026 10:00 AM EST Office Visit [facility] Family Medicine [address] [place] [address] [place] [address] Marianne Mondragon 22 [facility], [address] [place] [address] [email or web address] documented as of this encounter Visit Diagnoses Not on filedocumented in this encounter Additional Health Concerns Assessment Noted Time PHQ-2 Depression Total Score: 2 08/16/20 24 4:09 PM EDT documented as of this encounter Care Teams Measurement Operator Relationship Specialty Start Date End Date Marianne Mondragon [address] [place] [address], [address] [place] [address] [email or web address] PCP - General Family Medicine 03/30/24 Bucky Sierra MD [address] [place] [address], 2nd [place] [address] Physical Medicine and Rehabilitation 09/05/25 documented as of this encounter Additional Source Comments The information contained in this document represents components of the legal health record. It is not the complete legal health record.[facility]
--- OUTSIDE RECORDS SUMMARY | 2025-10-02 16:23 | XMS_ITS | Encounter Summary ---
Author Organization [facility] Address [address] [facility] [address] [place] [address] Phone Care Team Providers Care Bilingual Medical Assistant Name Role Phone Marianne Mondragon Primary Care Provider Bucky Sierra MD Unavailable Encounter Details Date Type Department Care Team (Late st Contact Info) Description 10/25/2024 Transcribe Orders [address] [address] Marianne Mondragon 22 [facility], [address] [place] [address] [email or web address] Social History Tobacco Use Types Packs/Day [...] EST Office Visit [facility] [place] [facility] [address] [place] [address] [place] [address] Marianne Mondragon [address] [place] [address], [address] [place] [address] [email or web address] 10/24/2025 10:30 AM EST Office Visit [facility] [address] [place] [address] Dr 3rd Floor, [address] [place] [address] Debra Hernandez DNP 22 [facility], [address] [place] [address] 11/16/2025 10:20 AM EST Office Visit [facility] Orthopedics & Sports Medicine [address] [place] [address] Ivory Camejo PA-C [address] [place] [address] Orthopedics & Sports Medicine, [place] [address] 11/28/2025 10:00 AM EST Office Visit [facility] Neurology [address] [place] [address] [place] [address] Sidney Rodriguez PA-C [address] [place] [address], 3rd [place] [address] 01/02/2026 12:30 PM EST Office Visit [facility] [address] [address] Debbie Waller MD, PhD [address] [place] [address] [email or web address] 03/22/2026 3:30 PM EDT Office Visit [facility] Geriatrics [address] [place] [address] [place] [address] Mateo Lozano DO [address] [place] [address] 11/22/2026 10:00 AM EST Office Visit [facility] [address] [place] [address] Marianne Mondragon 22 [facility], [address] [place] [address] [email or web address] documented as of this encounter Visit Diagnoses Not on filedocumented in this encounter Additional Health Concerns Assessment Noted Time PHQ-2 Depression Total Score: 2 08/16/20 24 4:09 PM EDT documented as of this encounter Care Teams Bilingual Medical Assistant Relationship Specialty Start Date End Date Marianne Mondragon 22 [facility], [address] [place] [address] [email or web address] PCP - General Family Medicine 03/30/24 Bucky Sierra MD [address] [place] [address], 2nd [place] [address] Physical Medicine and Rehabilitation 09/05/25 documented as of this encounter Additional Source Comments The information contained in this document represents components of the legal health record. It is not the complete legal health record.[facility]
--- OUTSIDE RECORDS SUMMARY | 2025-10-02 16:23 | XMS_ITS | Encounter Summary ---
Author Organization [facility]ly [facility] Address [address] [place] [address] Phone Care Team Providers Care Aerobics Instructor Name Role Phone Marianne Mondragon Primary Care Provider Bucky Sierra MD Unavailable Encounter Details Date Type Department Care Team (Late st Contact Info) Description 09/21/2025 Telephone [email or web address] [facility] Medicine [address] [place] [address] Marianne Mondragon 22 [facility] [place], [place] [id number] [email or web address] Social History Tobacco Use Types Packs/Day Years [...] on file documented as of this encounter Progress Notes * Malu Hanson - 09/21/2025 8:51 AM EST ERR documented in this encounter Plan of Treatment Upcoming Encounters Date Type Department Care Team (Late st Contact Info) Description 10/16/2025 9:30 AM EST Office Visit [facility] [address] [place] [address] Marianne Mondragon [address] [facility] [place] [address] [email or web address] 10/24/2025 10:30 AM EST Office Visit [facility] [address] [place] [address] Dr 3rd Floor, [address] [place] [address] Debra Hernandez DNP [address] [facility], [address] [place] [address] 11/16/2025 10:20 AM EST Office Visit [facility] Orthopedics & Sports Medicine [address] [place] [address] Ivory Camejo PA-C [address] [place] [address] Orthopedics & Sports Medicine, [place] [address] 11/28/2025 10:00 AM EST Office Visit [facility] Neurology [address] [place] [address] [place] [address] Sidney Rodriguez PA-C [address] [place] [address], 3rd [place] [address] 01/02/2026 12:30 PM EST Office Visit [facility] [address] [address] Debbie Waller MD, PhD [address] [place] [phone] [email or web address] 03/22/2026 3:30 PM EDT Office Visit [facility] Geriatrics [address] [place] [address] [place] [address] Mateo Lozano DO 22 [place] [address] 11/22/2026 10:00 AM EST Office Visit [facility] [address] [place] [address] Marianne Mondragon [address] [facility] [place] [address] [email or web address] documented as of this encounter Visit Diagnoses Not on filedocumented in this encounter Additional Health Concerns Assessment Noted Time PHQ-9 Depression Total Score: 4 09/14/20 11:36 AM EST PHQ-2 Depression Total Score: 2 09/14/20 11:36 AM EST documented as of this encounter Care Teams Aerobics Instructor Relationship Specialty Start Date End Date Marianne Mondragon [address] [facility] [place] [address] [email or web address] PCP - General Family Medicine 03/30/24 Bucky Sierra MD [address] [facility], 2nd [place] [address] Physical Medicine and Rehabilitation 09/05/25 documented as of this encounter Additional Source Comments The information contained in this document represents components of the legal health record. It is not the complete legal health record.[facility]
--- OUTSIDE RECORDS SUMMARY | 2025-10-02 16:23 | XMS_ITS | Encounter Summary ---
Author Organization [facility] Address [address] [place] [address] Phone Care Team Providers Care Skin Toggler Name Role Phone Pcp, Unknown Primary Care Provider UnavailMarianne Juarez Primary Care Provider [phone] Pcp, Unknown Primary Care Provider Unavailabl Marianne Awad Primary Care Provider Bucky Sierra MD Unavailable [phone] Encounter Details Date Type Department Care Team (Latest Contact Info) Description 01/21/2024 Transcribe Orders [facility] Phleb Patt [address] [address] Sandy Marie NP 10 [place] [address] Diarrhea, unspecified type (Primary Dx); Bloating Social [...] Description 10/16/2025 9:30 AM EST Office Visit [address] [place] [address] Marianne Mondragon 22 [facility], [address] [place] [address] [email or web address] 10/24/2025 10:30 AM EST Office Visit [facility] [address] [place] [address] 3rd Floor, [address] [place] [address] Debra Hernandez DNP 22 [facility], [address] [place] [address] 11/16/2025 10:20 AM EST Office Visit [facility] Orthopedics & Sports Medicine [address] [place] [address] Ivory Camejo PA-C [address] [place] [address] Orthopedics & Sports Medicine, [facility] [place] [address] 11/28/2025 10:00 AM EST Office Visit [facility] Neurology [address] [place] [address] [place] [address] Sidney Rodriguez PA-C [address] [place] [address], 3rd [place] [address] 01/02/2026 12:30 PM EST Office Visit [facility] Vestibular Lab [address] [address] Debbie Waller MD, PhD [address] [place] [phone] [email or web address] 03/22/2026 3:30 PM EDT Office Visit [facility] Geriatrics [address] [place] [address] Mateo Lozano DO 22 [place] [address] [email or web address] 11/22/2026 10:00 AM EST Office Visit [facility] Family Medicine [address] [place] [address] Marianne Mondragon 22 [facility], [address] [place] [address] [email or web address] documented as of this encounter Results * Stool fat/fiber exam (01/23/2024 8:30 AM EDT) FATTY ACID NORMAL NORMAL [facility] Neutral Fat, stool NORMAL NORMAL [facility] Stool (Stool) 01/23/2024 8:3 0 AM EDT 01/23/2024 9:40 AM EDT Sandy Marie NP BODY FLUIDS AND STOOLS OR DERABLES Final Result [facility] [address] [place] [address] * Pancreatic Elastase, Stool (01/23/2024 8:30 AM EDT) Pancreatic Elastase, Feces >500 >200 (Normal) mcg/g [facility] Stool (Stool) 01/23/2024 8:3 0 AM EDT 01/23/2024 9:40 AM EDT Sandy Marie NP BODY FLUIDS AND STOOLS OR DERABLES Final Result [facility] [address] [place] [address] documented in this encounter Visit Diagnoses Diagnosis Diarrhea, unspecified type- Primary Bloating Flatulence, eructation, and gas pain documented in this encounter Care Teams Skin Toggler Relationship Specialty Start Date End Date Pcp, Unknown PCP - General 10/09/23 01/22/24 Marianne Mondragon [address] [place] [address], [address] [place] [address] [email or web address] PCP - General Family Medicine 01/23/24 01/31/24 Pcp, Unknown PCP - General 02/02/24 03/29/24 Marianne Mondragon [address] [place] [address], [address] [place] [address] [email or web address] PCP - General Family Medicine 03/30/24 Bucky Sierra MD [address] [place] [address], 2[address] [place] [address] Physical Medicine and Rehabilitation 09/05/25 documented as of this encounter Additional Source Comments The information contained in this document represents components of the legal health record. It is not the complete legal health record.[facility]
--- OUTSIDE RECORDS SUMMARY | 2025-10-02 16:23 | XMS_ITS | Encounter Summary ---
Author Organization [facility] Address [address] [place] [address] Phone Care Team Providers Care Inspector Raw Quartz Name Role Phone Marianne Mondragon Primary Care Provider Bucky Sierra MD Unavailable [phone] Encounter Details Date Type Department Care Team (Latest Contact Info) Description 04/13/2025 Ancillary Orders [address] [address] Eva Mei MD [address] [place] [address] Orthopedics & Sports Medicine, [place], [place] [id number] [email or web address] Osteoarthritis of right hip, unspecified osteoarthritis type [...] EST Office Visit [facility] [place] [facility] [address] [place] [address] [place] [address] Marianne Mondragon 22 [facility], [address] [place] [address] [email or web address] 10/24/2025 10:30 AM EST Office Visit [facility] [address] [place] [address] Dr 3rd Floor, [address] [place] [address] Debra Hernandez DNP 22 [facility], [address] [place] [address] 11/16/2025 10:20 AM EST Office Visit [facility] Orthopedics & Sports Medicine [address] [place] [address] Ivory Camejo PA-C [address] [place] [address] Orthopedics & Sports Medicine, [place] [address] 11/28/2025 10:00 AM EST Office Visit [facility] Neurology [address] [place] [address] [place] [address] Sidney Rodriguez PA-C [address] [place] [address], 3rd [place] [address] 01/02/2026 12:30 PM EST Office Visit [facility] Vestibular Lab [address] [address] Debbie Waller MD, PhD [address] [place] [phone] [email or web address] 03/22/2026 3:30 PM EDT Office Visit [facility] Geriatrics [address] [place] [address] [place] [address] Mateo Lozano DO 22 [place] [address] 11/22/2026 10:00 AM EST Office Visit [facility] Medicine [address] [place] [address] Marianne Mondragon 22 [facility], [address] [place] [address] [email or web address] Pending Results Name Type Priority [...] documented as of this encounter Care Teams Inspector Raw Quartz Relationship Specialty Start Date End Date Marianne Mondragon 22 [facility], [address] [place] [address] [email or web address] PCP - General Family Medicine 03/30/24 Bucky Sierra MD 22 [facility], 2nd [place] [address] Physical Medicine and Rehabilitation 09/05/25 documented as of this encounter Additional Source Comments The information contained in this document represents components of the legal health record. It is not the complete legal health record.[facility]
--- OUTSIDE RECORDS SUMMARY | 2025-10-02 16:23 | XMS_ITS | Clinical Summary ---
Author Organization [facility] Address [address] [address] Phone Care Team Providers Care Truck Driver Flatbed Name Role Phone Marianne Mondragon Primary Care Provider [phone] Bucky Sierra MD Unavailable [phone] Medications aspirin 81 mg chewable tablet Take [...] Active Problems Problem Noted Date Diagnosed Date Mild Alzheimer's dementia with mood disturbance 09/20/2025 Rash 07/24/2025 Assessment & Plan (07/24/2025 6:13 [...] includes neurological, ENT, or sleep-related disorders. Consider [facility] evaluation due to symptom complexity. - Initiate physical therapy for balance and neck. - Consult Dr. Diaz for neurological evaluation. - Contact Dr. Rand for sleep disorder evaluation. - Research [facility] for comprehensive evaluation. - Consider Lyme disease testing. Assessment & Plan (06/08/2025 6:38 PM EDT): Persistent severe orthostatic hypotension with dizziness, nausea, and weakness causing functional impairment. Underlying cause unclear. - Schedule earlier appointment with general store manager Dr. Ayala if possible. - Proceed with [...] Recommend Flonase for sinus congestion. - Contact general store manager for blood pressure medication adjustment. - Perform [...] still concerned for non orthopedic etiologies, will [place] back and discuss next steps. Hyperkalemia 10/18/2024 [...] 10:55 AM EDT): Seen by urology in [place]. Had a recent US that was clean. [...] more frustrated by it. Saw neurology in [place] last in 2021. Has an upcoming appointment [...] this was placed. Coronary artery disease involving [place] coronar y artery 06/04/2020 Assessment & Plan [...] Well-managed diabetic. Last A1C was 6.3. His general store manager encouraged him to try a GLP1 and [...] target range. Last A1C was 7.1. His general store manager encouraged him to try a GLP1 and we did attempt Ozempic but he did not tolerate. Back on Januvia but A1C still elevated. Would be willing to give him another 3 months to try bringing down the A1C to goal naturally, especially since he is so close. Good medication adherence, has been working on exercise with a personalized living assistant, hopefully we can get there. Blood pressure [...] aortic valve stenosis 02/01/2024 06/09/2024 Atherosclerosis of [place] co ronary artery of [place] heart without angina pectoris 02/01/202411/2023 Calculus of gallbladder without cholecystitis 09/08/20 16 06/09/2024 Recurrent major depressive disorder 05/27/2012 06/09/2024 Impingement syndrome of shoulder 04/09/2012 06/09/2024 Hypertriglyceridemia 02/26/2012 024 Encounters Date Type Department Care Team Description 09/29/2025 6:15 PM EST - 09/29/2025 11:59 PM EST Hospital Encounter [address] [place] [address] Byron Diaz MD Arrived Discharge Disposition: Home or Self Care 09/21/2025 Telephone [facility] [address] [place] [address] [place] [address] Marianne Mondragon 09/20/2025 3:30 PM EST Office Visit [facility] [address] [place] [address] Mateo Lozano, Mild Alzheimer's dementia with mood disturbance, unspecified timing of dementia onset (Primary Dx); Balance disorder; Mood disorder; At increased risk for social isolation; Encounter for support to caregiver; Encounter for medication review 09/19/2025 2:45 PM EST Procedure visit [facility] Vestibular Lab [address] [address] Debbie Waller MD, PhD Bucky Coffman MD Gait instability 09/19/2025 1:00 PM EST Office Visit [facility] V[facility]ibular Lab [address] [address] Debbie Waller MD, PhD Bucky Coffman MD Gait instability 09/19/2025 Orders Only [facility] [address] [address] Susu Oliver Pillkristina Vertigo (Primary Dx) 09/15/2025 6:20 AM EST - 09/15/2025 11:59 PM EST Hospital Encounter [address] [address] Byron Diaz MD Discharge Disposition: Home or Self Care 09/08/2025 Transcribe Orders [facility] V[facility]ibular Lab [address] [address] Debbie Waller MD, PhD Gait instability (Primary Dx) 09/07/2025 Telephone [facility] Neurology [address] [place] [address] Meena Cardenas MA 09/05/2025 9:15 AM EDT Office Visit [facility] Vestibular Lab [address] [address] Debbie Waller MD, PhD Gait instability (Primary Dx); Parkinsonian features 08/28/2025 2:30 PM EDT Office Visit [facility] Neurology [address] [place] [address] [place] [address] Byron Diaz MD Dizziness and giddiness (Primary Dx); Cervical myofascial pain syndrome; Tremors of nervous system; 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; Brisk deep tendon reflexes 08/28/2025 Procedure Pass [address] [place] [address] 08/28/2025 Procedure Pass [facility] [address] [place] [address] 08/23/2025 Telephone [facility] [address] [place] [address] Lexi Solomon PVI Outreach 08/15/2025 Orders Only [facility] [address] [place] [address] Unknown, Mitchell, 08/15/2025 Telephone [facility] [address] [place] [address] Adrienne Barraza Appointment 08/14/2025 8:15 AM EDT Office Visit [facility] [address] [place] [address] Marianne Mondragon Moderate episode of recurrent major depressive disorder; Encounter for annual wellness visit (AWV) in Medicare patient; Diabetes mellitus type 2 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; Screening for prostate cancer; Need for hepatitis C screening test 08/08/2025 2:15 PM EDT Office Visit [facility] [address] [place] [address] Adolfo Ayala MD Bell, Ross, PT Vertigo (Primary Dx) 08/01/2025 9:40 AM EDT Office Visit [facility] Spine Medicine [address] [place] [address] Bucky Sierra MD Cervical facet joint syndrome (Primary Dx) 07/27/2025 10:15 AM EDT Office Visit [facility] [address] [place] [address] Adolfo Ayala MD Bell, Ross, PT Vertigo (Primary Dx) 07/26/2025 Refill [facility] [address] [place] [address] Byron Diaz MD Medication Refill 07/25/2025 10:53 AM EDT - 07/25/2025 11:59 PM EDT Hospital Encounter [address] [address] Marianne Mondragon Discharge Disposition: Home or Self Care 07/24/2025 9:45 AM EDT Office Visit [address] [place] [address] Marianne Mondragon Lightheadedness; Seborrheic dermatitis, unspecified; Rash 07/21/2025 8:27 AM EDT - 07/21/2025 11:59 PM EDT Hospital Encounter [address] [address] Marianne Mondragon Discharge Disposition: Home or Self Care 07/20/2025 Orders Only [address] [place] [address] Marianne Mondragon Diabetes mellitus type 2 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 (Primary Dx) 07/11/2025 Orders Only [address] [place] [address] ProviderDanyel MD 07/07/2025 8:00 AM EDT Office Visit [facility] [address] [place] [address] Adolfo Ayala MD Bell, Ross, PT Vertigo (Primary Dx) 07/07/2025 Telephone [facility] [address] [place] [address] [place] [address] Kalia Hdz, PT 07/07/2025 Telephone [facility] [address] [place] [address] Kalia Hdz, PT 07/05/2025 8:00 AM EDT Office Visit [address] [place] [address] Adolfo Ayala MD Bell, Ross, PT Vertigo (Primary Dx) from Last 3 Months Immunizations Immunization Administration [...] Cigarettes 1 9 1977 Smokeless Tobacco: Never Tobacco Cessation:Counseling Given: [...] Sign Reading Time Taken Comments Blood Pressure 128/62 09/20/2025 3:21 PM EST Pulse 69 09/20/2025 3:21 PM EST Temperature 36.3 C (97.4 F) 08/14/2025 8:09 AM EDT Respiratory Rate 14 10/07/2024 9:00 PM EST Oxygen Saturation 97% 09/20/2025 3:21 PM EST Inhaled Oxygen Concentration - - Weight 83.9 kg (185 lb) 09/22/2025 12:54 PM EST Height 172.7 cm (5' 8 ) 09/22/2025 12:54 PM EST Body Mass Index 28.13 09/22/2025 12:54 PM EST Plan of Treatment Upcoming Encounters Date Type Department Care Team (Late st Contact Info) Description 10/16/2025 9:30 AM EST Office Visit [facility] Medicine [address] [place] [address] [place] [address] Marianne Mondragon 22 [facility], [address] [place] [address] [email or web address] 10/24/2025 10:30 AM EST Office Visit [facility] [address] [place] [address] 3rd Floor, [address] [place] [address] Debra Hernandez DNP 22 [facility], [address] [place] [address] 11/16/2025 10:20 AM EST Office Visit [facility] Orthopedics & Sports Medicine [address] [place] [address] Ivory Camejo PA-C [address] [place] [address] Orthopedics & Sports Medicine, [place] [address] 11/28/2025 10:00 AM EST Office Visit [facility] Neurology [address] [place] [address] [place] [address] Sidney Rodriguez PA-C [address] [place] [address], 3rd [place] [address] 01/02/2026 12:30 PM EST Office Visit [facility] [address] [place] [address] Debbie Waller MD, PhD [address] [place] [address] [email or web address] 03/22/2026 3:30 PM EDT Office Visit [facility] [address] [place] [address] Mateo Lozano DO [address] [place] [address] 11/22/2026 10:00 AM EST Office Visit [facility] [address] [place] [address] Marianne Mondragon 22 [facility], [address] [place] [address] [email or web address] Health Maintenance Due Date Last Done Comments HEPATITIS C SCREENING 1967 COLOGUARD 1994 COLONOSCOPY 1994 COLORECTAL CANCER SCREENING 1994 FIT TEST 1994 FOBT 1994 SIGMOIDOSCOPY 1994 VIRTUAL COLONOSCOPY 1994 COVID-19 VACCINE ( season) 2025 07/28/2025, 11/16/2024, 06/10/2024, Additional history exists HEMOGLOBIN A1C 01/18/2026 07/21/2025, 04/10, 03/15/2025, Additional history exists BLOOD PRESSURE 03/20/2026 09/20/2025 DIABETIC EYE EXAM 04/26/2026 04/26/2025, , 05/17/2018 CREATININE LEVEL 05/05/2026 05/05/2025, 09/2024, 10/07/2024, Additional history exists POTASSIUM LEVEL 05/05/2026 05/05/2025, 10/09, 10/07/2024, Additional history exists DEPRESSION SCREENING 09/14/2026 09/14/2025, 09/14/20 25 Adult Td,Tdap Booster 08/22/2035 08/22/2025, 006 ZOSTER VACCINES Completed 02/14/2022, 11/17/2021 RSV VACCINE Completed 08/22/2023 PNEUMOCOCCAL VACCINES (50+ years) Completed 08/18/2024, 05/27/2017, 11/04/2010 INFLUENZA VACCINE Completed 08/22/2025, , 08/22/2023, Additional history exists SMOKING STATUS SCREENING (Once After 26 Yrs) Completed 09/20/2025 HEPATITIS A VACCINES Aged Out No long [...] Procedure Name Priority Date/Time Associated Diagnosis Comments VESTIBULAR TESTING Routine 09/22/2025 3: 15 PM EST Gait instability MRI CERVICAL SPINE (NEURO) FOCUS WITHOUT CONTRAST Routine 09/15/2025 7:14 AM EST Dizziness and giddiness Cervical myofascial pain syndrome Brisk deep tendon reflexes Ehrlichia/anaplasma PCR Routine 07/25/2025 10:53 AM EDT Lightheadedness BABESIA SPECIES PCR Routine 07/25/2025 1 0:53 AM EDT Lightheadedness LYME SCREEN WITH REFLEX TO WESTERN BLOT, BLOOD Routine 07/25/2025 10:53 AM EDT Lightheadedness HEMOGLOBIN A1C Routine 07/21/2025 8:27 AM EDT Diabetes mellitus type 2 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 Cervical degenerative change with severe spinal canal narrowing at C4-5. There may be some signal within the cervical cord at C4-5 secondary to compressive myelopathy. Narrative 09/18/2025 1:17 PM EST MRI CERVICAL SPINE (NEURO) FOCUS WITHOUT CONTRAST Referring clinician's provided indication for this examination in Epic: * Myelopathy, acute or progressive; Brisk reflexes, neck pain, imbalance. TECHNIQUE: MRI CERVICAL SPINE (NEURO) FOCUS WITHOUT CONTRAST Multi-sequence, multi-planar MRI of the cervical spine was performed without intravenous contrast. COMPARISON: FINDINGS: CERVICAL SPINE: Alignment and Vertebrae: There is reversal the normal cervical lordosis. The slight spondylolisthesis at C2-3. No cervical compression of artery. Marrow: No bone marrow replacing lesion. Discs and Endplates: There is severe intervertebral disc height loss at C4-5. There is moderate disc height loss at C3-4, C5-6, and C6-7. There is Modic type 3 degenerative endplate change at C4-5. No substantial marrow edema. Spinal Cord: There may be signal within the flattened cord at C4-5 related to compressive myelopathy. Soft Tissue: Normal. No prevertebral edema. Findings by level: C2-C3: No spinal canal or right neural foraminal narrowing. There is severe left neural foraminal narrowing. C3-C4: There is moderate spinal canal narrowing due to broad-based disc protrusion. There is severe bilateral neural foraminal narrowing. C4-C5: There is severe spinal canal narrowing with flattening the cord due to broad-based disc osteophyte complex. There is severe bilateral neural foraminal narrowing. C5-C6: There is mild spinal canal narrowing due to broad-based disc protrusion. There is moderate left and severe right neural foraminal narrowing. C6-C7: There is a broad-based disc protrusion without spinal canal narrowing. There is moderate right and severe left neural foraminal narrowing. C7-T1: No spinal canal or neural foraminal narrowing. Procedure Note Ivan Moeller DO - 09/18/2025 MRI CERVICAL SPINE (NEURO) FOCUS WITHOUT CONTRAST Referring clinician's provided indication for this examination in Epic: *Myelopathy, acute or progressive; Brisk reflexes, neck pain, imbalance. TECHNIQUE: MRI CERVICAL SPINE (NEURO) FOCUS WITHOUT CONTRAST Multi-sequence, multi-planar MRI of the cervical spine was performedwithout intravenous contrast. COMPARISON: FINDINGS: CERVICAL SPINE: Alignment and Vertebrae: There is reversal the normal cervical lordosis.The slight spondylolisthesis at C2-3. No cervical compression of artery. Marrow: No bone marrow replacing lesion. Discs and Endplates: There is severe intervertebral disc height loss atC4-5. There is moderate disc height loss at C3-4, C5-6, and C6-7. There isModic type 3 degenerative endplate change at C4-5. No substantial marrowedema. Spinal Cord: There may be signal within the flattened cord at C4-5 relatedto compressive myelopathy. Soft Tissue: Normal. No prevertebral edema. Findings by level: C2-C3: No spinal canal or right neural foraminal narrowing. There issevere left neural foraminal narrowing. C3-C4: There is moderate spinal canal narrowing due to broad-based discprotrusion. There is severe bilateral neural foraminal narrowing. C4-C5: There is severe spinal canal narrowing with flattening the cord dueto broad-based disc osteophyte complex. There is severe bilateral neuralforaminal narrowing. C5-C6: There is mild spinal canal narrowing due to broad-based discprotrusion. There is moderate left and severe right neural foraminalnarrowing. C6-C7: There is a broad-based disc protrusion without spinal canalnarrowing. There is moderate right and severe left neural foraminalnarrowing. C7-T1: No spinal canal or neural foraminal narrowing. IMPRESSION: 1. Cervical degenerative change with severe spinal canal narrowing atC4-5. There may be some signal within the cervical cord at C4-5 secondaryto compressive myelopathy. Byron Diaz MD IMG MR XSPECIALTY Final Result * Babesia species PCR (07/25/2025 10:53 AM EDT) B.Microti PCR Negative Negative [facility] D[facility] OF LAB MED AND PAT+ B.Duncani PCR Negative Negative [facility] DPT OF LAB MED AND PAT+ B.Divergens/MO-1 PCR Negative Negative [facility] DPT OF LAB MED AND PAT+ Comment: (NOTE) ADDITIONAL INFORMATION This test was developed and its performance characteristics determined by [facility] in a manner consistent with CLIA requirements. This test has not been cleared or approved by the U.S. Food and Drug Administration. Blood 07/25/2025 10:5 3 AM EDT 07/25/2025 10:55 AM EDT Marianne Mondragon LAB BLOOD ORDERABLES Final Result [facility] DPT OF LAB MED AND PAT+ [address] [place] [address] * Ehrlichia/anaplasma PCR (07/25/2025 10:53 AM EDT) ANAPLASMA PHAGOCYTO Negative Negative [facility] DPT OF LAB MED AND PAT+ EHRLICHIA CHAFFEENS Negative Negative [facility] DPT OF LAB MED AND PAT+ EHRL EWINGII/CANIS Negative Negative [facility] EHRL MURIS-LIKE Negative Negative [facility] DPT OF LAB MED AND PAT+ Comment: (NOTE) ADDITIONAL INFORMATION This test was developed and its performance characteristics determined by [facility] in a manner consistent with CLIA requirements. This test has not been cleared or approved by the U.S. Food and Drug Administration. Blood 07/25/2025 10:5 3 AM EDT 07/25/2025 10:55 AM EDT YuanV LAB BLOOD ORDERABLES Final Result [facility] DPT OF LAB MED AND PAT+ [address] [place] [address] * Lyme Screen with Reflex to Immunoblot, Blood (07/25/2025 10:53 AM EDT) Pathologist [facility] Lyme AB IgG Negative Negative [facility] Lyme AB IgM Negative Negative [facility] Blood 07/25/2025 10:5 3 AM EDT 07/25/2025 10:55 AM EDT Yuan[facility] LAB BLOOD BKR ORDERABLES Ed ited Result - Final Performing Organization Address [facility]/ZIP Co de Phone Number [address] [address] * (ABNORMAL) Hemoglobin A1c (07/21/2025 8:27 AM EDT) [facility] HEMOGLOBIN A1C 6.3(H) 4.3 - 5.8 % [facility] Blood 07/21/2025 8:27 AM EDT 07/21/2025 8:30 AM EDT [facility]LOOD BKR ORDERABLES Fi nal Result [address] [address] * (ABNORMAL) Comprehensive metabolic panel (05/05/2025 3:30 PM EDT) Pathologist [facility] SODIUM 135 133 - 146 mmol/L [facility] [...] EDT 05/05/2025 3:32 PM EDT us Marianne JewellDermott LAB BLOOD BKR ORDERABLES Fi nal Result [address] [address] * DIABETES EYE EXAM FOR RESULT ENTRY ONLY (04/26/2025 3:33 PM EDT) us Unknown Unknown HEALTH MAINTENANCE Edited Res ult - Final from Last 3 Months or Most Recently Relevant to Health Maintenance Insurance [place] PPO [place] [address] [place] [address] MEDICARE PPO BLUE REPLACEMENT [facility] MEDICARE PPO [place]UE [place] [address] [place] [address] MEDICARE PPO [address] [place] [address] [place] [address] MEDICARE PPO BLUE REPLACEMENT Advance Directives For more information, please contact: [phone] (9AM - 5PM [facility], Thursday-Thursday) Documents on File Type Date Recorded 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 It is not the complete legal health record.[facility]
--- OUTSIDE RECORDS SUMMARY | 2025-10-02 16:23 | XMS_ITS | Encounter Summary ---
Author Organization [facility] Address [address] [place] [address] Phone Care Team Providers Care Neurology Hospitalist Name Role Phone Marianne Mondragon Primary Care Provider Bucky Sierra MD Unavailable [phone] Encounter Details Date Type Department Care Team (Late st Contact Info) Description 10/18/2024 Ancillary Orders [address] [address] Eva Mei MD [address] [place] [address] Orthopedics & Sports Medicine, [place] [address] [email or web address] Right hip pain (Primary Dx) Social History [...] EST Office Visit [facility] [place] [facility] [address] [place] [address] [place] [address] Marianne Mondragon 22 [facility], [address] [place] [address] [email or web address] 10/24/2025 10:30 AM EST Office Visit [facility] [address] [place] [address] Dr 3rd Floor, [address] [place] [address] Debra Hernandez DNP 22 [facility], [address] [place] [address] 11/16/2025 10:20 AM EST Office Visit [facility] Orthopedics & Sports Medicine [address] [place] [address] Ivory Camejo PA-C [address] [place] [address] Orthopedics & Sports Medicine, [place] [address] 11/28/2025 10:00 AM EST Office Visit [facility] Neurology [address] [place] [address] [place] [address] Sidney Rodriguez PA-C [address] [place] [address], 3rd [place] [address] 01/02/2026 12:30 PM EST Office Visit [facility] Vestibular Lab [address] [address] Debbie Waller MD, PhD [address] [place] [address] [email or web address] 03/22/2026 3:30 PM EDT Office Visit [facility] Geriatrics [address] [place] [address] [place] [address] Mateo Lozano DO [address] [place] [address] 11/22/2026 10:00 AM EST Office Visit [facility] [address] [address] MariaelenakolbyMarianne Villareal 22 [facility] [place] [address] [email or web address] documented as of this encounter Visit Diagnoses Diagnosis Right hip pain- Primary Pain in joint, pelvic region and thigh documented in this encounter Additional Health Concerns Assessment Noted Time PHQ-2 Depression Total Score: 2 08/16/20 24 4:09 PM EDT documented as of this encounter Care Teams Neurology Hospitalist Relationship Specialty Start Date End Date MariaelenakolbyMarianne Villareal 22 [facility], [address] [place] [address] [email or web address] PCP - General Family Medicine 03/30/24 Bucky Sierra MD [address] [place] [address], 2[address] [place] [address] [email or web address] Physical Medicine and Rehabilitation 09/05/25 documented as of this encounter Additional Source Comments The information contained in this document represents components of the legal health record. It is not the complete legal health record.[facility]
--- OUTSIDE RECORDS SUMMARY | 2025-10-02 16:23 | XMS_ITS | Encounter Summary ---
Author Organization [facility] Address [address] [place] [id number] Phone Care Team Providers Care Funeral Home Assistant Name Role Phone Marianne Mondragon Primary Care Provider Bucky Sierra MD Unavailable [phone] Encounter Details Date Type Department Care Team (Late st Contact Info) Description 06/09/2024 Procedure Pass [facility], [address] [place] [address] Social History Tobacco Use Types Packs/Day Years [...] Description 10/16/2025 9:30 AM EST Office Visit [facility] Family [address] [place] [address] Marianne Mondragon [address] [place] [address], [address] [place] [address] [email or web address] 10/24/2025 10:30 AM EST Office Visit [facility] [address] [place] [address] [address]rd Floor, [address] [place] [address] Debra Hernandez DNP [address] [place] [address], [address] [place] [address] 11/16/2025 10:20 AM EST Office Visit [facility] Orthopedics & Sports Medicine [address] [place] [address] Ivory Camejo PA-C [address] [place] [address] Orthopedics & Sports Medicine, [facility] [place] [address] 11/28/2025 10:00 AM EST Office Visit [facility] Neurology [address] [place] [address] [place] [address] Sidney Rodriguez PA-C 22 [facility], 3rd [place] [address] 01/02/2026 12:30 PM EST Office Visit [facility] [address] [place] [address] Debbie Waller MD, PhD [address] [place] [address] [email or web address] 03/22/2026 3:30 PM EDT Office Visit [facility] Geriatrics [address] [place] [address] Mateo Lozano DO 22 [place] [address] 11/22/2026 10:00 AM EST Office Visit [address] [place] [address] Marianne Mondragon [address] [place] [address], [address] [place] [address] [email or web address] documented as of this encounter Visit Diagnoses Not on filedocumented in this encounter Additional Health Concerns Assessment Noted Time PHQ-2 Depression Total Score: 2 06/06/20 24 11:46 AM EDT documented as of this encounter Care Teams Funeral Home Assistant Relationship Specialty Start Date End Date Marianne Mondragon [address] [place] [address], [address] [place] [address] [email or web address] PCP - General Family Medicine 03/30/24 Bucky Sierra MD [address] [place] [address], [address] [place] [address] [email or web address] Physical Medicine and Rehabilitation 09/05/25 documented as of this encounter Additional Source Comments The information contained in this document represents components of the legal health record. It is not the complete legal health record.[facility]
--- OUTSIDE RECORDS SUMMARY | 2025-10-02 16:23 | XMS_ITS | Encounter Summary ---
Author Organization [facility] Address [address] [place] [address] Phone Care Team Providers Care Director Of Student Financial Aid Name Role Phone Marianne Mondragon Primary Care Provider Bucky Sierra MD Unavailable [phone] Encounter Details Date Type Department Care Team (Late st Contact Info) Description 08/28/2025 Procedure Pass [facility], [address] [address] Social History Tobacco Use Types Packs/Day Years [...] EST Office Visit [facility] [place] [facility] [address] [place] [address] [place] [address] Marianne Mondragon 22 [facility], [address] [place] [address] [email or web address] 10/24/2025 10:30 AM EST Office Visit [facility] [address] [place] [address] 3rd Floor, [address] [place] [address] Debra Hernandez DNP [address] [place] [address], [address] [place] [address] 11/16/2025 10:20 AM EST Office Visit [facility] Orthopedics & Sports Medicine [address] [place] [address] Ivory Camejo PA-C [address] [place] [address] Orthopedics & Sports Medicine, [facility] [place] [address] 11/28/2025 10:00 AM EST Office Visit [facility] Neurology [address] [place] [address] [place] [address] Sidney Rodriguez PA-C [address] [place] [address], 3rd [place] [address] 01/02/2026 12:30 PM EST Office Visit [facility] Vestibular Lab [address] [address] Debbie Waller MD, PhD [address] [place] [address] [email or web address] 03/22/2026 3:30 PM EDT Office Visit [facility] Geriatrics [address] [place] [address] [place] [address] Mateo Lozano DO [address] [place] [address] 11/22/2026 10:00 AM EST Office Visit [facility] Family Medicine [address] [place] [address] [place] [address] Marianne Mondragon 22 [facility], [address] [place] [address] [email or web address] documented as of this encounter Visit Diagnoses Not on filedocumented in this encounter Additional Health Concerns Assessment Noted Time PHQ-9 Depression Total Score: 4 09/14/20 11:36 AM EST PHQ-2 Depression Total Score: 2 09/14/20 11:36 AM EST documented as of this encounter Care Teams Director Of Student Financial Aid Relationship Specialty Start Date End Date Marianne Mondragon [address] [place] [address], [address] [place] [address] [email or web address] PCP - General Family Medicine 03/30/24 Bucky Sierra MD [address] [place] [address], 2nd [place] [address] Physical Medicine and Rehabilitation 09/05/25 documented as of this encounter Additional Source Comments The information contained in this document represents components of the legal health record. It is not the complete legal health record.[facility]
--- OUTSIDE RECORDS SUMMARY | 2025-10-02 16:23 | XMS_ITS | Encounter Summary ---
Author Organization [facility] Address [address] [place] [phone] Phone Care Team Providers Care Data Compiler Name Role Phone Marianne Mondragon Primary Care Provider Bucky Sierra MD Unavailable [phone] Encounter Details Date Type Department Care Team (Late st Contact Info) Description 01/02/2025 Procedure Pass [facility] [address] [place] [address] Social History Tobacco Use Types Packs/Day Years [...] you interested in more education? Not on lcay e 10/09/2023 Are you concerned about learning? [...] EST Office Visit [facility] [place] [facility] [address] [place] [address] [place] [address] Marianne Mondragon 22 [facility], [address] [place] [address] [email or web address] 10/24/2025 10:30 AM EST Office Visit [facility] [address] [place] [address] 3rd Floor, [address] [place] [address] Debra Hernandez DNP 22 [facility], [address] [place] [address] 11/16/2025 10:20 AM EST Office Visit [facility] Orthopedics & Sports Medicine [address] [place] [address] Ivory Camejo PA-C [address] [place] [address] Orthopedics & Sports Medicine, [place] [address] 11/28/2025 10:00 AM EST Office Visit [facility] Neurology [address] [place] [address] [place] [address] Sidney Rodriguez PA-C [address] [place] [address], 3rd [place] [address] 01/02/2026 12:30 PM EST Office Visit [facility] Vestibular Lab [address] [address] Debbie Waller MD, PhD [address] [place] [address] [email or web address] 03/22/2026 3:30 PM EDT Office Visit [facility] Geriatrics [address] [place] [address] [place] [address] Mateo Lozano, [address] [place] [address] 11/22/2026 10:00 AM EST Office Visit [facility] Family Medicine [address] [place] [address] [place] [address] Marianne Mondragon 22 [facility], [address] [place] [address] [email or web address] documented as of this encounter Visit Diagnoses Not on filedocumented in this encounter Additional Health Concerns Assessment Noted Time PHQ-2 Depression Total Score: 2 08/16/20 24 4:09 PM EDT documented as of this encounter Care Teams Data Compiler Relationship Specialty Start Date End Date Marianne Mondragon [address] [place] [address], [address] [place] [address] [email or web address] PCP - General Family Medicine 03/30/24 Bucky Sierra MD [address] [place] [address], 2nd [place] [address] Physical Medicine and Rehabilitation 09/05/25 documented as of this encounter Additional Source Comments The information contained in this document represents components of the legal health record. It is not the complete legal health record.[facility]
== END 2025-10-02 13:13 | disposition home or self-care (01) ==
LOC: HO.PMC 12:23
PROVIDERS: PCP Student in an Organized Health Care Education/Training Program; Visit Provider Internal Medicine
DX: M48.02 Spinal stenosis, cervical region (principal)
CPT/HCPCS: 99213

== ENCOUNTER → 2025-10-02 12:23 | Outpatient (BNVA) | payer MEDICARE, SELFPAY | PROVIDERS: PCP Student in an Organized Health Care Education/Training Program; Visit Provider Internal Medicine | DX: R42 Dizziness and giddiness (principal); G95.9 Disease of spinal cord, unspecified; M48.02 Spinal stenosis, cervical region | CPT/HCPCS: 99212 ==